=== PATIENT | female | born 1965 | race Caucasian/White ===

== ENCOUNTER 2020-11-02 13:36 | Outpatient (REF) | payer OTHER, SELFPAY ==
[2020-11-02 15:20] LABS: COVID-19 Test Negative (Negative)
== END 2020-11-02 13:37 | disposition home or self-care (01) ==
LOC: HO.EMPCOV 13:36
PROVIDERS: PCP Internal Medicine; Visit Provider Internal Medicine
DX: Z20.828 Contact with and (suspected) exposure to other viral communicable diseases (principal)
CPT/HCPCS: 87635; C9803

== ENCOUNTER 2020-11-25 15:54 | Outpatient (REF) | payer OTHER, SELFPAY ==
--- NOTE | 2020-11-25 16:01 | MM_ITS ---
EXAMINATION: MM SCREENING DIGITAL BREAST TOMOSYNTHESIS, BILATERAL CLINICAL INFORMATION: Screening. Asymptomatic. Family history breast cancer mother, age 80, aunts, cousin. The lifetime risk of breast cancer based on the Tyrer-Cuzick Model is 10%. COMPARISON: Mammography: 08/14/2019, 08/10/2018, 08/08/2017; ultrasound right breast 08/19/2019 TECHNIQUE: Digital breast tomosynthesis is performed in both the craniocaudal and mediolateral oblique views along with computer-aided detection (CAD). Synthesized 2D images are generated from the tomosynthesis. Additional left MLO view is provided. FINDINGS: The breasts are almost entirely fatty (ACR BI-RADS breast composition Category a). There are no significant masses, abnormal calcifications, or other abnormalities. Tiny cyst anterior lower inner right breast is stable. MM/MM tomosynthesis screening BI IMPRESSION: No mammographic evidence of malignancy. ASSESSMENT: BI-RADS 2: Benign RECOMMENDATION: Routine annual mammography screening. This patient's information was entered into a reminder system with a target due date for their next mammogram.
== END 2020-11-25 15:55 | disposition home or self-care (01) ==
LOC: HO.MAMMO 15:54
PROVIDERS: PCP Internal Medicine; Visit Provider Physician Assistant
DX: Z12.31 Encounter for screening mammogram for malignant neoplasm of breast (principal)
CPT/HCPCS: 77063; 77067

== ENCOUNTER 2021-06-15 11:14 | Outpatient (REF) | payer OTHER, SELFPAY ==
--- NOTE | ~2021-06-15 | US_ITS ---
EXAMINATION: US VENOUS ULTRASOUND WITH DOPPLER LOWER EXTREMITY, LEFT CLINICAL INFORMATION: M79.605 - Pain in left leg COMPARISON: None TECHNIQUE: Ultrasound of the deep veins is performed from the hip to the calf with compression sonography and color and pulse Doppler assessment. Spectral analysis with color-flow imaging is performed. FINDINGS: There is normal venous compression and respiratory variation and augmented flow. The visualized common femoral vein, superficial femoral vein, profunda femoral vein, popliteal vein, and the trifurcation region shows no evidence of deep venous thrombosis. The peroneal veins are difficult to visualize. There is no significant popliteal fossa cyst. US/US venous duplex LE IMPRESSION: 1. No DVT demonstrated in the left lower extremity. 2. If the patient's symptoms persist, followup ultrasound in 5 days 7 days might be of value to exclude proximal propagation from a non-visualized calf vein.
== END 2021-06-15 11:15 | disposition home or self-care (01) ==
LOC: HO.US 11:14
PROVIDERS: PCP Internal Medicine; Visit Provider Internal Medicine
DX: M79.605 Pain in left leg (principal)
CPT/HCPCS: 93971

== ENCOUNTER 2021-09-30 08:26 | Outpatient (REF) | payer OTHER, SELFPAY ==
[2021-09-30 09:39] LABS: Alanine Aminotransferase 19 U/L (0-31); Albumin Level 4.2 g/dL (3.5-5.0); Alkaline Phosphatase 76 U/L (39-117); Anion Gap 13 (12-20); Aspartate Amino Transferase 16 U/L (5-31); Bilirubin Total 0.5 mg/dL (0.0-1.0); Blood Urea Nitrogen 16 mg/dL (9-16); Calcium 9.4 mg/dL (8.4-10.2); Carbon Dioxide 26 mmol/L (22-29); Chloride 104 mmol/L (96-108); Cholesterol 195 mg/dL; Estimated Glomerular Filt Rate > 60; Glucose Fasting 108 mg/dL (60-99); HDL Cholesterol 46 mg/dL; LDL Cholesterol Calculated 133 mg/dl; Potassium 4.3 mmol/L (3.3-5.1); Sodium 139 mmol/L (135-145); Total Protein 6.8 g/dL (6.5-8.0); Triglycerides 83 mg/dL
== END 2021-09-30 08:27 | disposition home or self-care (01) ==
LOC: HO.LAB 08:26
PROVIDERS: PCP Internal Medicine; Visit Provider Internal Medicine
DX: E78.5 Hyperlipidemia, unspecified (principal)
CPT/HCPCS: 36415; 80053; 80061

== ENCOUNTER 2021-12-29 12:48 | Outpatient (REF) | payer OTHER, SELFPAY ==
--- NOTE | ~2021-12-29 | MM_ITS ---
EXAMINATION: BONE DENSITOMETRY CLINICAL INDICATION: Other specified disorders of bone density and structure. COMPARISON: Previous BD dated 08/16/2019 and baseline BD dated 08/18/2008, left hip; 02/23/2004, spine. TECHNIQUE: Using a [employer]oBox DXA System (software version: 13.1) manufactured by [employer], dual-energy x-ray absorptiometry was performed of the lumbar spine and left hip. The images are of good technical quality. Summary results are attached. FINDINGS: AP SPINE L1-L4: Current: BMD 1.026 g/cm2, Z-score -0.7, T-score -1.3, osteopenia, 7.7% increase from previous, 9.7% decrease from baseline (<5% change is not significant). Prior: BMD 0.953 g/cm2. Baseline: BMD 1.136 g/cm2. LEFT FEMUR, NECK: Current: BMD 0.743 g/cm2, Z-score -1.3, T-score -2.1, osteopenia. Prior: BMD 0.720 g/cm2. Baseline: BMD 0.812 g/cm2. LEFT FEMUR, TOTAL: Current: BMD 0.829 g/cm2, Z-score -1.0, T-score -1.4, osteopenia, 8.2% increase from previous, 1.0% decrease from baseline (<5% change is not significant). Prior: BMD 0.766 g/cm2. Baseline: BMD 0.837 g/cm2. IDENTIFIED RISK FACTORS: Early menopause, secondary osteoporosis, anticonvulsants, hysterectomy, bilateral oophorectomy. HISTORY OF FRACTURE: None listed. MEDICATIONS: Calcium supplements or multivitamin, vitamin D. MM/XR DEXA axial skeleton IMPRESSION: 1. DIAGNOSIS: Osteopenia based on the lowest T-score value of -2.1 in the femoral neck applying World Health Organization criteria. 2. 10-YEAR FRACTURE RISK PREDICTION, FRAX: Major osteoporotic fracture (clinical spine, forearm, hip or shoulder) 9.0%. Hip fracture 1.2%. 3. Treatment Recommendations: NOF guidelines recommend consideration for treatment in postmenopausal women and men age 50 and older presenting with the following: -A hip or vertebral (clinical or morphometric) fracture. -T-score less than or equal to -2.5 at the femoral neck or spine after appropriate evaluation to exclude secondary causes. -Low bone mass at the hip or spine and a 10-year fracture probability by FRAX of greater than or equal to 3% for hip fracture or greater than or equal to 20% for major osteoporotic fracture based on the [place] adapted WHO algorithm. 4. Other Recommendations: All treatment decisions require clinical judgment and consideration of individual patient factors, including patient preferences, comorbidities, previous drug use, risk factors not captured in the FRAX model (e.g. frailty, falls, vitamin D deficiency, increased bone turnover, interval significant decline in bone density) and possible under or overestimation of fracture risk by FRAX. Additional medical evaluation for secondary cause of low bone mineral density may be appropriate. FUTURE SCAN RECOMMENDATION: People with diagnosed cases of osteoporosis or at high risk for fracture should have regular bone mineral density tests. For patients eligible for Medicare, routine testing is allowed once every 2 years. The testing frequency can be increased to one year for patients who have rapidly progressing disease, those who are receiving or discontinuing medical therapy to restore bone mass, or have additional risk factors.
--- NOTE | ~2021-12-29 | MM_ITS ---
EXAMINATION: MM SCREENING DIGITAL BREAST TOMOSYNTHESIS, BILATERAL CLINICAL INFORMATION: Screening. Asymptomatic. The lifetime risk of breast cancer based on the Tyrer-Cuzick Model is 9%. COMPARISON: Mammography: 11/25/2020, 08/14/2019, 08/10/2018; targeted right breast ultrasound 08/19/2019. TECHNIQUE: Digital breast tomosynthesis is performed in both the craniocaudal and mediolateral oblique views along with computer-aided detection (CAD). Synthesized 2D images are generated from the tomosynthesis. FINDINGS: The breasts are almost entirely fatty (ACR BI-RADS breast composition Category a). There are no significant masses, abnormal calcifications, or other abnormalities. No developing density. Tiny cyst anterior lower right breast and low axillary tail node is stable. Skin contours are smooth. MM/MM tomosynthesis screening BI IMPRESSION: No mammographic evidence of malignancy. ASSESSMENT: BI-RADS 2: Benign RECOMMENDATION: Routine annual mammography screening. This patient's information was entered into a reminder system with a target due date for their next mammogram.
== END 2021-12-29 12:49 | disposition home or self-care (01) ==
LOC: HO.MAMMO 12:48
PROVIDERS: PCP Internal Medicine; Visit Provider Internal Medicine
DX: Z12.31 Encounter for screening mammogram for malignant neoplasm of breast (principal); Z13.820 Encounter for screening for osteoporosis; M85.80 Other specified disorders of bone density and structure, unspecified site; Z78.0 Asymptomatic menopausal state; Z79.899 Other long term (current) drug therapy
CPT/HCPCS: 77063; 77067; 77080

== ENCOUNTER 2022-08-16 07:55 | Outpatient (REF) | payer OTHER, SELFPAY ==
--- NOTE | ~2022-08-16 | US_ITS ---
EXAMINATION: US VENOUS ULTRASOUND WITH DOPPLER LOWER EXTREMITY, RIGHT CLINICAL INFORMATION: Right leg pain. COMPARISON: None TECHNIQUE: Ultrasound of the deep veins is performed from the hip to the calf with compression sonography and color and pulse Doppler assessment. Spectral analysis with color-flow imaging is performed. FINDINGS: There is normal venous compression and respiratory variation and augmented flow. The visualized common femoral vein, superficial femoral vein, profunda femoral vein, popliteal vein, and the trifurcation region shows no evidence of deep venous thrombosis. No right popliteal cyst. The subcutaneous soft tissues are unremarkable. If the patient's symptoms persist, followup ultrasound in 5 days 7 days might be of value to exclude proximal propagation from a non-visualized calf vein. US/US venous duplex LE RT IMPRESSION: No evidence for deep venous thrombosis in the visualized veins of the right lower extremity.
== END 2022-08-16 07:56 | disposition home or self-care (01) ==
LOC: HO.US 07:55
PROVIDERS: Visit Provider Internal Medicine
DX: M79.604 Pain in right leg (principal)
CPT/HCPCS: 93971

== ENCOUNTER 2022-08-29 07:20 | Outpatient (REF) | payer OTHER, SELFPAY ==
--- NOTE | ~2022-08-29 | MR_ITS ---
EXAMINATION: MR LUMBAR SPINE WITHOUT CONTRAST CLINICAL INFORMATION: Right-sided sciatica. COMPARISON: Lumbar spine MRI 06/21/2018. TECHNIQUE: MRI of the lumbar spine was obtained using routine sequences without contrast. FINDINGS: Alignment is normal. Vertebral body heights are preserved. No acute bone marrow signal changes. There is disc desiccation at multiple levels without substantial loss of intervertebral disc height. The tip of the conus medullaris is located at L1-L2. No mass effect on the conus. Visualized distal cord signal intensity is normal. At L1-L2 there is a shallow central protrusion. Mild canal stenosis. No mass effect on the traversing or foraminal nerve roots. At L2-L3 there is a right central protrusion. Mild canal stenosis. No mass effect on the traversing or foraminal nerve roots. At L3-L4 there is a left foraminal to far lateral annular fissure associated with a bulging disc. Bilateral facet degenerative change. No canal stenosis. No mass effect on the traversing or foraminal nerve roots. At L4-L5 the annular contour is normal. Bilateral facet degenerative change. No canal stenosis. No mass effect on the traversing or foraminal nerve roots. At L5-S1 there are chronic changes of a right hemilaminectomy. There is a slightly bulging disc. No canal stenosis. The epidural space along the right lateral aspect of the canal at this level is suboptimally assessed due to the absence of intravenous contrast. No foraminal nerve root compression. Limited visualization of the retroperitoneal anatomy reveals no abnormal finding. Psoas and paraspinal muscle groups are symmetric. MR/MR lumbar spine wo con IMPRESSION: There is disc degeneration at multiple levels within the lumbar spine. Mild canal stenosis at L1-L2 and L2-L3. Otherwise no canal compromise. No mass effect on the traversing or foraminal nerve roots. There are chronic postlaminectomy changes at L5-S1. The epidural space along the right lateral aspect of the canal the level of L5-S1 is suboptimally assessed on this examination due to the absence of intravenous contrast.
== END 2022-08-29 07:21 | disposition home or self-care (01) ==
LOC: HO.MRI 07:20
PROVIDERS: Visit Provider Internal Medicine
DX: M54.31 Sciatica, right side (principal); M79.604 Pain in right leg
CPT/HCPCS: 72148

== ENCOUNTER 2022-10-22 09:22 | Outpatient (REF) | payer OTHER, SELFPAY ==
[2022-10-22 11:07] LABS: Alanine Aminotransferase 24 U/L (0-31); Albumin Level 4.3 g/dL (3.5-5.0); Alkaline Phosphatase 76 U/L (39-117); Anion Gap 11 (12-20); Aspartate Amino Transferase 18 U/L (5-31); Bilirubin Total 0.6 mg/dL (0.0-1.0); Blood Urea Nitrogen 16 mg/dL (9-16); Calcium 9.5 mg/dL (8.4-10.2); Carbon Dioxide 26 mmol/L (22-29); Chloride 107 mmol/L (96-108); Cholesterol 160 mg/dL; Estimated Glomerular Filt Rate > 60; Glucose Fasting 106 mg/dL (60-99); HDL Cholesterol 41 mg/dL; LDL Cholesterol Calculated 103 mg/dl; Potassium 4.1 mmol/L (3.3-5.1); Sodium 140 mmol/L (135-145); Total Protein 6.4 g/dL (6.5-8.0); Triglycerides 82 mg/dL; Vitamin D 25-OH Total 40.4 ng/mL (>30)
== END 2022-10-22 09:23 | disposition home or self-care (01) ==
LOC: HO.LAB 09:22
PROVIDERS: PCP Internal Medicine; Visit Provider Internal Medicine
DX: Z00.00 Encounter for general adult medical examination without abnormal findings (principal); E78.5 Hyperlipidemia, unspecified; E55.9 Vitamin D deficiency, unspecified
CPT/HCPCS: 36415; 80053; 80061; 82306

== ENCOUNTER → 2022-11-25 08:11 | Outpatient (BNVA) | payer OTHER, SELFPAY | PROVIDERS: PCP Internal Medicine; Visit Provider Internal Medicine | DX: Z13.89 Encounter for screening for other disorder (principal) ==

== ENCOUNTER 2023-01-19 14:44 | Outpatient (REF) | payer OTHER, SELFPAY ==
--- NOTE | ~2023-01-19 | MM_ITS ---
EXAMINATION: MM SCREENING DIGITAL BREAST TOMOSYNTHESIS, BILATERAL CLINICAL INFORMATION: Screening. Asymptomatic. The lifetime risk of breast cancer based on the Tyrer-Cuzick Model is 9%. COMPARISON: Mammography: 12/29/2021, 11/25/2019 12/02/2018 TECHNIQUE: Digital breast tomosynthesis is performed in both the craniocaudal and mediolateral oblique views along with computer-aided detection (CAD). Synthesized 2D images are generated from the tomosynthesis. FINDINGS: The breasts are almost entirely fatty (ACR BI-RADS breast composition Category a). There are no significant masses, abnormal calcifications, or other abnormalities. Background stromal markings are similar to prior studies and there is no developing density or interval architectural abnormality. Incidental intramammary node again present posterior 9:00 right breast. The axilla and skin contours are unremarkable. No significant changes. MM/MM tomosynthesis screening BI IMPRESSION: No mammographic evidence of malignancy. ASSESSMENT: BI-RADS 2: Benign RECOMMENDATION: Routine annual mammography screening. This patient's information was entered into a reminder system with a target due date for their next mammogram.
== END 2023-01-19 14:45 | disposition home or self-care (01) ==
LOC: HO.MAMMO 14:44
PROVIDERS: PCP Internal Medicine; Visit Provider Internal Medicine
DX: Z12.31 Encounter for screening mammogram for malignant neoplasm of breast (principal)
CPT/HCPCS: 77063; 77067

== ENCOUNTER 2023-04-21 07:36 | Day surgery (SDC) | payer OTHER, SELFPAY ==
--- NOTE | 2023-04-20 10:42 | HO.ANESPROP2 ---
Documented by User: Carly Crews NP 04/20/23 10:44 HPI - Anesthesia Eval Consult details Narrative: 58yo F for Colonoscopy PMFSH Active Problems Active Problems: All Active Problems (Updated 04/20/23 @ 09:53 by Unique Aden, RN) Right leg pain (Acute) Right sided sciatica (Acute) Post laminectomy syndrome (Acute) Physical exam (Acute) Osteopenia (Acute) Obesity (BMI 30.0-34.9) (Acute) Impaired glucose tolerance (Acute) Cold sore (Acute) Left leg pain (Acute) Blood pressure elevated without history of HTN (Acute) Dyslipidemia (Acute) Past Medical History Medical History (Updated 04/20/23 @ 09:53 by Unique Aden, RN) Blood pressure elevated without history of HTN Cold sore Dyslipidemia GERD (gastroesophageal reflux disease) Hiatal hernia IBS (irritable bowel syndrome) Impaired glucose tolerance Left leg pain Mitral valve prolapse Obesity (BMI 30.0-34.9) Osteopenia Otitis media Family History Family History Mother Essential hypertension Dyslipidemia Diabetes mellitus Father Parkinsons disease Surgical History Surgical History (Updated 04/20/23 @ 09:51 by Unique Aden RN) H/O colonoscopy History of back surgery History of hysterectomy Hx of esophagogastroduodenoscopy Social History Social History Housing: House Alcohol intake: current Alcohol intake frequency: does not drink Alcohol type: hard liquor Patient Tobacco Use Status: Former Tobacco user Tobacco use type: Cigarette e-Cigarette/Vaping Use: Never Used Second Hand Smoke Exposure: No Are you DNR?: No Advance Directives: No Advance Directives Information Provided: Yes Nutrition Risks: No Nutritional Risk service: No Current occupational status: employed Cognitive needs: No Hearing needs: No Vision needs: No Meds Allergies Allergy/AdvReac Type Severity Reaction Status Date / Time moxifloxacin [Avelox] Allergy Severe hives/rash Verified 11/25/22 08:28 penicillin V Allergy Intermediate hives Verified 11/25/22 08:28 prednisone Allergy Mild rash Verified 11/25/22 08:28 atorvastatin [Lipitor] AdvReac Intermediate muscle Verified 11/25/22 08:28 aches Dairy- lactose intolerant Allergy Intermediate gi side Uncoded 11/25/22 08:28 effects Augmentin Allergy Mild GI side Uncoded 11/25/22 08:28 effects. Seasonal allergies Allergy Mild Sneezing Uncoded 11/25/22 08:28 Home Medications Medication Instructions Recorded Confirmed Last Taken Type aspirin 81 mg tablet,delayed 81 mg PO DAILY 02/16/21 11/25/22 04/11/23 History release (Adult Low Dose Aspirin) cholecalciferol (vitamin D3) 25 25 mcg PO DAILY 06/15/21 11/25/22 Unknown History mcg (1,000 unit) capsule biotin 04/20/23 04/20/23 Unknown History Exam Exam Date and Time: April 20, 2023 104 Assessment and Plan Assessment Anesthesia Assessment: Chart Reviewed Documented by User: Kacie Quinonez MD 04/21/23 09:11 COUNTS INCLUDE 234 BEDS AT THE [facility] Past Medical History Medical History (Updated 04/20/23 @ 09:53 by Unique Aden, RN) Blood pressure elevated without history of HTN Cold sore Dyslipidemia GERD (gastroesophageal reflux disease) Hiatal hernia IBS (irritable bowel syndrome) Impaired glucose tolerance Left leg pain Mitral valve prolapse Obesity (BMI 30.0-34.9) Osteopenia Otitis media Family History Family History Mother Essential hypertension Dyslipidemia Diabetes mellitus Father Parkinsons disease Family history of problems with anesthesia: No Surgical History Surgical History (Updated 04/20/23 @ 09:51 by Unique Aden, RN) H/O colonoscopy History of back surgery History of hysterectomy Hx of esophagogastroduodenoscopy History of Problems with Anesthesia: No Social History Social History Housing: House Alcohol intake: current Alcohol intake frequency: does not drink Alcohol type: hard liquor Patient Tobacco Use Status: Former Tobacco user Tobacco use type: Cigarette e-Cigarette/Vaping Use: Never Used Second Hand Smoke Exposure: No Are you DNR?: No Advance Directives: No Advance Directives Information Provided: Yes Nutrition Risks: No Nutritional Risk service: No Current occupational status: employed Cognitive needs: No Hearing needs: No Vision needs: No Meds Allergies Allergy/AdvReac Type Severity Reaction Status Date / Time moxifloxacin [Avelox] Allergy Severe hives/rash Verified 11/25/22 08:28 penicillin V Allergy Intermediate hives Verified 11/25/22 08:28 prednisone Allergy Mild rash Verified 11/25/22 08:28 atorvastatin [Lipitor] AdvReac Intermediate muscle Verified 11/25/22 08:28 aches Dairy- lactose intolerant Allergy Intermediate gi side Uncoded 11/25/22 08:28 effects Augmentin Allergy Mild GI side Uncoded 11/25/22 08:28 effects. Seasonal allergies Allergy Mild Sneezing Uncoded 11/25/22 08:28 Home Medications Medication Instructions Recorded Confirmed Last Taken Type aspirin 81 mg tablet,delayed 81 mg PO DAILY 02/16/21 11/25/22 04/11/23 History release (Adult Low Dose Aspirin) cholecalciferol (vitamin D3) 25 25 mcg PO DAILY 06/15/21 11/25/22 Unknown History mcg (1,000 unit) capsule biotin 04/20/23 04/20/23 Unknown History Exam Airway Mallampati Class: I TM Dist: >3cm Neck ROM: Full Loose/Missing/Broken Teeth: No Heart: rr Lungs: cta Assessment and Plan Assessment Anesthesia Assessment: Anesthesia Plan Discussed Final Anesthetic Review Family History of Problems with Anesthesia: No History of Problems with Anesthesia: No NPO: Yes ASA Class: II Final Preanesthetic Review: No Changes in Pt Med Stat, Meds/Allgs Chart Reviewed, Consent Obtained/Reviewed and Anes Risks/Benef Reviewed Patient Risk: Low Procedure Risk: Low Anesthetic Plan Anesthetic Plan: MAC: Disposition: Standard PACU
[2023-04-21 05:57] VITALS: BMI 35.1
[2023-04-21 07:39] VITALS: BP 143/89; PULSE 99; RESP 20; TEMP 36.1; O2SAT 99
[2023-04-21] MEDS: Lactated Ringers 1,000 ML 100 ML IVCONT (08:04)
--- NOTE | 2023-04-21 09:37 | P.BOP_ITS ---
Brief Operative Note Date of Service: 04/21/23 Pre-op diagnosis: Screening Post-op diagnosis: other (Diverticulosis) Procedure: Colonoscopy to the cecum Surgeon: Julio C Giraldo Anesthesia: MAC Was an Art Education Professor used for this Procedure?: No Estimated blood loss (mL): 0 Pathology: none sent Condition: stable Disposition: PACU
[2023-04-21 09:39] VITALS: BP 107/66; PULSE 85; RESP 16; TEMP 36.5; O2SAT 97
[2023-04-21 09:54] VITALS: BP 115/69; PULSE 83; RESP 16; O2SAT 98
--- NOTE | 2023-04-21 10:01 | OP_ITS ---
DATE OF SERVICE: 04/21/2023 SURGEON: Julio C Giraldo MD INDICATIONS: The patient presents for evaluation of colorectal cancer screening. Full consent has been obtained from her for this, including risks of bleeding and perforation. PREOPERATIVE DIAGNOSIS: Colorectal cancer screening. POSTOPERATIVE DIAGNOSIS: PROCEDURE PERFORMED: Colonoscopy to the cecum. ESTIMATED BLOOD LOSS: COMPLICATIONS: ANESTHESIA: Monitored anesthesia care. ASSISTANTS: SPECIMENS: POSTOPERATIVE DIAGNOSES: Colorectal cancer screening, sigmoid diverticulosis, and internal hemorrhoids. DESCRIPTION OF PROCEDURE: The patient was placed in the left lateral decubitus position. The digital rectal exam revealed no abnormalities. The Olympus video pediatric colonoscope was entered into the rectum and advanced easily to the cecum. Once in the cecum, I did identify normal-appearing cecal pouch with appendiceal orifice and a normal-appearing ileocecal valve. The entire cecum and ileocecal valve appeared normal. There was transillumination of light deep in the right lower quadrant. The scope was slowly withdrawn assessing all mucosal surfaces carefully. Preparation was excellent. I did not visualize any sign of polyps, colitis, nor angiodysplasia. There was a mild amount of sigmoid diverticulosis. In the rectum, scope was retroflexed visualizing internal hemorrhoids but no other pathology. The rectal mucosa appeared normal. The scope was straightened and withdrawn from the patient. She tolerated the procedure well and was returned to the recovery area in stable condition. IMPRESSION: 1. Diverticulosis. 2. Internal hemorrhoids. PLAN: Given today's negative exam, I would recommend a followup coloscopy in 10 years for further screening. She will otherwise see me on a p.r.n. basis. This has been discussed with her . She was advised that she could resume her aspirin and fish oil today as well. MD AISSATOU Molina/JOSE L / [id number] MTDD
== END 2023-04-21 10:20 | disposition home or self-care (01) ==
PROVIDERS: PCP Internal Medicine; Visit Provider Internal Medicine
PROC: 0DJD8ZZ Inspection of Lower Intestinal Tract, Via Natural or Artificial Opening Endoscopic (ICD-10-PCS; CPT 45378; principal; 2023-04-21 08:30)
DX: Z12.11 Encounter for screening for malignant neoplasm of colon (principal); K57.30 Diverticulosis of large intestine without perforation or abscess without bleeding; K64.8 Other hemorrhoids; K58.8 Other irritable bowel syndrome; E73.9 Lactose intolerance, unspecified; K21.9 Gastro-esophageal reflux disease without esophagitis; E78.5 Hyperlipidemia, unspecified; Z79.82 Long term (current) use of aspirin; Z79.899 Other long term (current) drug therapy; Z88.1 Allergy status to other antibiotic agents
CPT/HCPCS: 45378; 91035

== ENCOUNTER 2023-11-08 16:06 | Outpatient (AMB) | payer OTHER, SELFPAY ==
--- NOTE | 2023-11-08 16:10 | A.OFFPC_ITS ---
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 Seasonal allergies Allergy (Mild, Uncoded 11/08/23 16:21) Sneezing Medication List - Last Reconciled 11/08/23 by Yocasta Hernandez MD aspirin (Adult Low Dose Aspirin) 81 mg PO DAILY [biotin ] cholecalciferol (vitamin D3) 25 mcg PO DAILY simvastatin 20 mg PO BEDTIME Tobacco use date assessed: 11/08/23 Dental Screening Dental Screen Date: 11/08/23 Did you have a dental visit in the last 12 months?: Yes Did you have a dental problem in the last 6 months where you did not have access to dental care?: No Was dental information given to patient?: Patient has dentist HPI HPI Comments History of Present Illness Details This is a 58-year-old female that comes for her physical exam. Last mammogram was 2022 and was normal. Colonoscopy done April 2023 was normal. No chest pain or shortness of breath. [facility] Medical History (Updated 11/08/23 @ 16:36 by Yocasta Hernandez MD) IBS (irritable bowel syndrome) Mitral valve prolapse Hiatal hernia GERD (gastroesophageal reflux disease) Osteopenia Obesity (BMI 30.0-34.9) Impaired glucose tolerance Cold sore Left leg pain Blood pressure elevated without history of HTN Otitis media Dyslipidemia Surgical History Hx of esophagogastroduodenoscopy H/O colonoscopy History of back surgery History of hysterectomy Family History Mother Essential hypertension Dyslipidemia Diabetes mellitus Father Parkinsons disease Social History (Updated 11/08/23 @ 16:28 by Yocasta Hernandez MD) Housing: House Alcohol intake: current Alcohol intake frequency: does not drink Alcohol type: hard liquor Patient Tobacco Use Status: Former Tobacco user Tobacco use type: Cigarette e-Cigarette/Vaping Use: Never Used Second Hand Smoke Exposure: No service: No Current occupational status: employed Cognitive needs: No Hearing needs: No Vision needs: No Questionnaire PHQ-9 Over the last 2 weeks, how often have you been bothered by any of the following problems? 1. Little interest or pleasure in doing things: not at all 2. Feeling down, depressed, or hopeless: not at all 3. Trouble falling or staying asleep, or sleeping too much: not at all 4. Feeling tired or having little energy: not at all 5. Poor appetite or overeating: not at all 6. Feeling bad about yourself - or that you are a failure or have let yourself or your family down: not at all 7. Trouble concentrating on things, such as reading the newspaper or watching television: not at all 8. Moving or speaking so slowly that other people could have noticed. Or the opposite - being so fidgety or restless that you have been moving around a lot more than usual: not at all 9. Thoughts that you would be better off or of hurting yourself in some way: not at all Total score: 0 Depression Screening Interpretation: Negative Depression Screening Done: Yes 14045 - PHQ-9 Billing: Yes Source: Developed by Drs. Julio C Quijano, Mehnaz Alejo, Leonid Matos and colleagues, with an educational nithya from [employer]. Thrive Questionnaire Date Thrive assessed: 11/08/23 I am a: Patient What is your living situation today?: I have a steady place to live Within the past 12 months, did the food you bought not last and you didn't have the money to get more?: Never true Within the past 12 months, did you worry whether your food would run out before you got money to buy more?: Never true Do you have trouble paying for medicines?: No Do you have trouble getting transportation to medical appointments?: No Do you have trouble paying your heating and electricity bill?: No Do you have trouble taking care of your child, family member or friend?: No Do you have trouble with day-to-day activities such as bathing, preparing meals, shopping, managing finances, etc.?: No Are you currently unemployed and looking for a job?: No Are you interested in more education?: No Please select the resources that you would like help with: None Currently or been in a relationship where the following occur: no concerns reported CLARISSE-7 AMB Questionnaire CLARISSE-7 Date CLARISSE - 7 assessed: 11/08/23 Feeling nervous, anxious, or on edge: 0 = Not at all Not being able to stop or control worryin = Not at all Worrying too much about different things: 0 = Not at all Trouble relaxin = Not at all Being so restless that it is hard to sit still: 0 = Not at all Becoming easily annoyed or irritable: 0 = Not at all Feeling afraid as if something awful might happen: 0 = Not at all Total CLARISSE-7 score (0-4 normal; 5-9 mild; 10-14 moderate; 15-21 severe): 0 Source: Developed by Drs. Julio C Quijano, Mehnaz Alejo, Leonid Matos and colleagues, with an educational nithya from [employer]. CLARISSE-7 Assessment Billing CLARISSE-7 Assessment Tool: CLARISSE-7 Assessment 78604 Review of Systems Const All systems reviewed & are unremarkable except as noted in HPI and below Eyes Reports no additional complaints, Denies change in vision and Denies other visual disturbances Card Denies chest pain at rest, Denies chest pain with activity, Denies edema, Denies irregular heart rhythm, Denies claudication, Denies dyspnea, Denies dyspnea on exertion, Denies orthopnea, Denies paroxysmal nocturnal dyspnea and Denies slow heart rate Resp Denies cough, Denies dyspnea and Denies dyspnea on exertion GI Denies abdominal pain, Denies change in bowel habits, Denies excessive flatus, Denies nausea and Denies vomiting Denies urinary incontinence, Denies urinary hesitancy and Denies urinary urgency Musc Denies abnormal gait, Denies atrophy, Denies deformity and Denies limited range of motion Skin/Breast Denies bleeding lesions, Denies changing lesions and Denies rash Neuro Denies abnormal gait, Denies behavioral changes, Denies confusion and Denies lack of coordination Psych Denies behavioral changes and Denies confusion Physical exam (Primary Care) Vital Signs: Last Vital Signs BP 130/82 11/08/23 16:11 BMI result Body Mass Index 33.8 Tobacco/Smoking Status: Tobacco use Status Tobacco use date assessed 11/08/23 11/08/23 16:17 Patient Tobacco Use Status Former Tobacco user 11/08/23 16:13 Tobacco use type Cigarette 11/08/23 16:13 e-Cigarette/Vaping Use Never Used 11/08/23 16:13 PHQ-9: PHQ-9 Score PHQ-9: Total score 0 11/08/23 16:13 Depression Screening Interpretation: Negative Thrive Assessment: Date of Thrive Assessment Date Thrive assessed 11/08/23 11/08/23 16:13 Currently or been in a relationship where the following occur: no concerns reported Const General: No confusion Orientation/consciousness: patient oriented x3 and No confusion HENMT Head: Yes normal to inspection, Yes normocephalic and Yes atraumatic Ears: external ears normal Eyes General: appearance normal, both eyes and all related structures Eyelids: Yes eyelids normal Conjunctivae: conjunctivae normal Neck Neck: Yes normal visual inspection and Yes supple Resp Effort & Inspection: normal respiratory effort Auscultation: clear to auscultation bilaterally Cardio Jugular venous distension: no JVD Rate: regular rate Rhythm: regular rhythm Heart sounds: S1 normal heart sound present and S2 normal heart sound present GI Inspection: Yes normal to inspection Palpation (GI): Soft to palpation and nontender Auscultation: normal bowel sounds Skin General skin exam: no rashes or lesions noted Neuro General: patient oriented x3, no focal motor deficits and No confusion Extrem General: Yes full ROM Psych Appearance: grossly normal Assessment and Plan Assessment & Plan (1) Physical exam: Code(s): Z00.00 - Encounter for general adult medical examination without abnormal findings Plan: Repeat in a year. Orders: Orders Lipid Panel Today E78.5 - Hyperlipidemia, unspecified, Z00.00 - Encounter for general adult medical examination without abnormal findings Vitamin D 25-OH Total Today E55.9 - Vitamin D deficiency, unspecified Comprehensive [place]. Panel Fast Today Z00.00 - Encounter for general adult medical examination without abnormal findings Medications: New selenium sulfide 2.25% lather into wet hair; leave in place for approximately 3 mins ; rinse 5 mL t opical 2XW 180 mL 1RF 30 days L21.9 - Seborrheic dermatitis, unspecified Coding Level of Care Code Est Pt Prev Care 40-64y(84993) Diagnoses Physical exam Z00.00 Additional Codes CLARISSE-7 Assessment Billing - CLARISSE-7 Assessment Tool: CLARISSE-7 Assessment 88275 ([id number]) Time Spent (min) 30
[2023-11-08 16:11] VITALS: BP 130/82; BMI 33.8
== END 2023-11-08 16:35 | disposition home or self-care (01) ==
PROVIDERS: Visit Provider Internal Medicine
DX: Z00.00 Encounter for general adult medical examination without abnormal findings (principal)
CPT/HCPCS: 99396

== ENCOUNTER 2023-11-09 09:57 | Outpatient (REF) | payer OTHER, SELFPAY ==
[2023-11-09 12:35] LABS: Alanine Aminotransferase 20 U/L (0-31); Albumin Level 4.3 g/dL (3.5-5.0); Alkaline Phosphatase 71 U/L (39-117); Anion Gap 12 (12-20); Aspartate Amino Transferase 23 U/L (5-31); Bilirubin Total 0.5 mg/dL (0.0-1.0); Blood Urea Nitrogen 13 mg/dL (9-16); Calcium 9.6 mg/dL (8.4-10.2); Carbon Dioxide 26 mmol/L (22-29); Chloride 106 mmol/L (96-108); Cholesterol 189 mg/dL (<200); Estimated Glomerular Filt Rate > 60; Glucose Fasting 90 mg/dL (60-99); HDL Cholesterol 51 mg/dL (>40); LDL Cholesterol Calculated 120 mg/dL (<100); Potassium 3.7 mmol/L (3.3-5.1); Sodium 140 mmol/L (135-145); Total Protein 7.1 g/dL (6.5-8.0); Triglycerides 92 mg/dL (<150)
[2023-11-09 12:37] LABS: Vitamin D 25-OH Total 41.4 ng/mL (>30)
== END 2023-11-09 09:58 | disposition home or self-care (01) ==
LOC: HO.LAB 09:57
PROVIDERS: PCP Internal Medicine; Visit Provider Internal Medicine
DX: Z00.00 Encounter for general adult medical examination without abnormal findings (principal); E55.9 Vitamin D deficiency, unspecified; E78.5 Hyperlipidemia, unspecified
CPT/HCPCS: 36415; 80053; 80061; 82306

== ENCOUNTER 2023-12-04 09:58 | Outpatient (REF) | payer OTHER, SELFPAY ==
--- NOTE | ~2023-12-04 | XR_ITS ---
EXAMINATION: XR FOOT, RIGHT CLINICAL INFORMATION: Foot pain COMPARISON: None available. TECHNIQUE: AP, lateral, and oblique views of the right foot. FINDINGS: Soft tissues mid distal plantar foot are diffusely prominent. No fracture or dislocation. Alignment and articulations maintained. XR/XR foot RT min 3V IMPRESSION: No acute bony pathology right foot.
== END 2023-12-04 09:59 | disposition home or self-care (01) ==
LOC: HO.HOSX 09:58
PROVIDERS: Visit Provider Physician Assistant
DX: S62.606A Fracture of unspecified phalanx of right little finger, initial encounter for closed fracture (principal)
CPT/HCPCS: 73630

== ENCOUNTER 2023-12-04 13:19 | Outpatient (AMB) | payer OTHER, SELFPAY ==
--- NOTE | 2023-12-04 13:21 | MHC.OFFVIS ---
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 Patient reports she was vacuuming and she was putting the vacuum away while her right foot hit a chair causing her a lot of pain . She states that when she is not having too much pain. Allergies moxifloxacin [Avelox] Allergy (Severe, Verified 12/04/23 13:42) hives/rash penicillin V Allergy (Intermediate, Verified 12/04/23 13:42) hives prednisone Allergy (Mild, Verified 12/04/23 13:42) rash atorvastatin [Lipitor] Adverse Reaction (Intermediate, Verified 12/04/23 13:42) muscle aches Dairy- lactose intolerant Allergy (Intermediate, Uncoded 11/08/23 16:21) gi side effects Augmentin Allergy (Mild, Uncoded 11/08/23 16:21) GI side effects. 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 The patient reports after she finished vacuuming she went to put the vacuum away and she hit her foot on a chair. She states this caused her a lot of pain. 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 [facility] Medical History IBS (irritable bowel syndrome) Mitral valve prolapse Hiatal hernia GERD (gastroesophageal reflux disease) Osteopenia Obesity (BMI 30.0-34.9) Impaired glucose tolerance Cold sore Left leg pain Blood pressure elevated without history of HTN Otitis media Dyslipidemia Surgical History Hx of esophagogastroduodenoscopy H/O colonoscopy History of back surgery History of hysterectomy Family History Mother Essential hypertension Dyslipidemia Diabetes mellitus Father Parkinsons disease Social History (Reviewed 12/04/23 @ 13:22 by Dinora Marcus Housing: House Alcohol intake: current Alcohol intake frequency: does not drink Alcohol type: hard liquor Patient Tobacco Use Status: Former Tobacco user Tobacco use type: Cigarette e-Cigarette/Vaping Use: Never Used Second Hand Smoke Exposure: No service: No Current occupational status: employed Cognitive needs: No Hearing needs: No Vision needs: No Review of Systems Const All systems reviewed & are unremarkable except as noted in HPI and below Physical Exam Const General: cooperative and no acute distress Orientation/consciousness: patient oriented x3 Resp Effort & Inspection: normal respiratory effort and able to speak in complete sentences Cardio Peripheral pulses: Peripheral pulses 2+ throughout Skin General skin exam: no rashes or lesions noted Neuro General: patient oriented x3 Extrem Other: Right little toe: Mild ecchymosis and edema. No erythema or open wounds. Tenderness to palpation over the proximal phalanx. Numbness at baseline. Capillary refill is brisk. Assessment & Plan Assessment & Plan (1) Fracture of phalanx of right little finger: Code(s): S62.606A - Fracture of unspecified phalanx of right little finger, initial encounter for closed fracture Plan Ms. Madrid is a 58-year-old female who presents in the office today, as a new patient, for an evaluation of right foot pain. The patient reports after she finished vacuuming she went to put the vacuum away and she hit her foot on a chair. She states this caused her a lot of pain. 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 The little and ring toe were zuleyma taped while in the office today. She was educated bone takes 6-8 weeks to heal. I recommend the use of a supportive sneaker. No other additional orthopedic intervention is needed at this time. Follow up will be PRN, or sooner if needed. X-rays of the right foot which were obtained while in the office today and were reviewed by me, Estella Clayton PA-C, revealed a proximal phalanx fracture of the little toe. Orders: Orders XR foot RT min 3V Today M79.673 - Pain in unspecified foot Patient Instructions: Scribed for Estella Clayton PA-C by Yaneli White biomedical engineering director, on 12/04/2023 at 1:21 pm, EST. Coding Level of Care Code Est Pt Level 3 (36473) Diagnoses Fracture of phalanx of right little finger S62.606A
== END 2023-12-04 13:42 | disposition home or self-care (01) ==
PROVIDERS: PCP Internal Medicine; Visit Provider Physician Assistant
DX: S90.121A Contusion of right lesser toe(s) without damage to nail, initial encounter (principal)
CPT/HCPCS: 99203

== ENCOUNTER 2024-01-25 14:44 | Outpatient (REF) | payer OTHER, SELFPAY ==
--- NOTE | ~2024-01-25 | MM_ITS ---
EXAMINATION: MM SCREENING DIGITAL BREAST TOMOSYNTHESIS, BILATERAL CLINICAL INFORMATION: Screening. Asymptomatic. COMPARISON: Mammography: 01/19/2023, 12/29/2021, 11/25/2019 12/02/2018 TECHNIQUE: Digital breast tomosynthesis is performed in both the craniocaudal and mediolateral oblique views along with computer-aided detection (CAD). Synthesized 2D images are generated from the tomosynthesis. FINDINGS: The breasts are almost entirely fatty (ACR BI-RADS breast composition Category a). There are no suspicious masses, suspicious grouped calcifications, or areas of architectural distortion in either breast. Unchanged incidental intramammary lymph node again noted posterior 9:00 right breast. The parenchymal pattern is stable from prior exams. No axillary or skin abnormalities. MM/MM tomosynthesis screening BI IMPRESSION: No mammographic evidence of malignancy. ASSESSMENT: BI-RADS BI-RADS 2 - Benign Findings RECOMMENDATION: Routine annual mammography screening. 1 year F/U This examination should not preclude the clinical evaluation of a suspicious palpable abnormality. This patient's information was entered into a reminder system with a target due date for their next mammogram.
== END 2024-01-25 14:45 | disposition home or self-care (01) ==
LOC: HO.MAMMO 14:44
PROVIDERS: PCP Internal Medicine; Visit Provider Internal Medicine
DX: Z12.31 Encounter for screening mammogram for malignant neoplasm of breast (principal)
CPT/HCPCS: 77063; 77067

== ENCOUNTER → 2024-01-25 15:00 | Outpatient (BNV) | payer OTHER, SELFPAY | PROVIDERS: PCP Internal Medicine; Visit Provider Radiology Diagnostic Radiology | DX: Z12.31 Encounter for screening mammogram for malignant neoplasm of breast (principal) | CPT/HCPCS: 77063; 77067 ==

== ENCOUNTER 2024-11-11 15:18 | Outpatient (AMB) | payer OTHER, SELFPAY ==
--- NOTE | 2024-11-11 15:21 | A.OFFPC_ITS ---
Vital Signs 11/11/24 15:28 Height 5 ft 2 in Weight 183 lb BMI 33.5 BP 116/86 Blood Pressure Location Rt brachial Position Sitting Pulse 90 Pulse Source Pulse Oximeter Pulse Oximetry (%) 98 Oxygen Delivery Method Room Air Intake Visit Reasons: CPE Intake Note: Physical. Sinus congestion, headache, mucous. Transitional Care Manager Required: No Allergies moxifloxacin [Avelox] Allergy (Severe, Verified 11/11/24 15:46) hives/rash penicillin V Allergy (Intermediate, Verified 11/11/24 15:46) hives prednisone Allergy (Mild, Verified 11/11/24 15:46) rash atorvastatin [Lipitor] Adverse Reaction (Intermediate, Verified 11/11/24 15:46) muscle aches Dairy- lactose intolerant Allergy (Intermediate, Uncoded 11/11/24 15:25) gi side effects Augmentin Allergy (Mild, Uncoded 11/11/24 15:25) GI side effects. Seasonal allergies Allergy (Mild, Uncoded 11/11/24 15:25) Sneezing Medication List - Last Reconciled 11/11/24 by SHARI Ortiz- aspirin (Adult Low Dose Aspirin) 81 mg PO DAILY [biotin ] cholecalciferol (vitamin D3) 25 mcg PO DAILY multivitamin 1 tab PO DAILY selenium sulfide 2.25% 5 mL topical 2XW 30 days simvastatin 20 mg PO BEDTIME valacyclovir 1,000 mg PO BID 7 days Tobacco use date assessed: 11/11/24 Dental Screening Dental Screen Date: 11/11/24 Did you have a dental visit in the last 12 months?: Yes Did you have a dental problem in the last 6 months where you did not have access to dental care?: No Was dental information given to patient?: Patient has dentist HPI HPI Comments History of Present Illness Details 59 y/o F with osteopenia, IFG, HLD, IBS, MV prolapse, hiatal hernia, post laminectomy syndrome, seborrheic dermatitis, family hx of breast ca, Mom with negative BRCA testing, divertoculosis s/p back surgery, hysterectomy Family hx Mom breast ca age 80, maternal cousin breast ca 40, maternal aunt breast ca 70, maternal aunt breast ca 30's Health Maintenance Tdap 2016 Flu 2023 at work Mammo 01/2024 Colon April 2023 WNL repeat [address] Kristal BATES 2021 osteopenia Pap Shingles vaccine UTD 2021, [facility] - no longer active Derm Here today for CPE c/o sinus infection sx started last mon, nasal congestion, gum and cheek pain, worse since onset. Discussed wt. Not eating daily calories. Sedentary. Optho overdue for exam. Plan - Continue all meds as prescribed. - Apply selenium sulfide shampoo to the scalp as needed. - Ensure regular mammogram appointments due to family history of breast cancer. - Consider vaccination for Pneumococcal if insurance coverage permits. - Focus on sleep hygiene, and implement stress reduction techniques. - Maintain the scheduled bone density sc reening in 2024. - Eat 1800 cals/day, aim to introduce mo re physical activity into the daily routine, gradually increasing as tolerated. Zpak for sinusitis. - Contact the clinic if there are any ne w concerns or symptoms arise. RTO 1 year CPE, sooner prn This note is constructed using voice recognition software. While every effort has been made to ensure accuracy in anchor tacker, still errors may have been included Sometimes, these errors may affect the content or meaning of the given sentence . An additional 20 minutes was spent addressing the problem(s) noted at todays visit. This includes time spent before the visit reviewing the chart, time spent during the visit, and time spent after the visit on documentation [facility] Medical History IBS (irritable bowel syndrome) Mitral valve prolapse Hiatal hernia GERD (gastroesophageal reflux disease) Osteopenia Obesity (BMI 30.0-34.9) Impaired glucose tolerance Cold sore Left leg pain Blood pressure elevated without history of HTN Otitis media Dyslipidemia Surgical History Hx of esophagogastroduodenoscopy H/O colonoscopy History of back surgery History of hysterectomy Family History (Updated 11/11/24 @ 15:28 by Elen Dinero CMA) Mother Essential hypertension Dyslipidemia Diabetes mellitus Father Parkinsons disease Other Mental health disorder Social History (Updated 11/11/24 @ 15:28 by Elen Dienro CMA) Housing: House Alcohol intake: current Alcohol intake frequency: does not drink Alcohol type: hard liquor Patient Tobacco Use Status: Former Tobacco user Tobacco use type: Cigarette Cigarettes Per Day: 10 Years Smoked: 12 e-Cigarette/Vaping Use: Never Used Second Hand Smoke Exposure: No service: No Current occupational status: employed 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 1. Little interest or pleasure in doing things: not at all 2. Feeling down, depressed, or hopeless: not at all 3. Trouble falling or staying asleep, or sleeping too much: not at all 4. Feeling tired or having little energy: not at all 5. Poor appetite or overeating: not at all 6. Feeling bad about yourself - or that you are a failure or have let yourself or your family down: not at all 7. Trouble concentrating on things, such as reading the newspaper or watching television: not at all 8. Moving or speaking so slowly that other people could have noticed. Or the opposite - being so fidgety or restless that you have been moving around a lot more than usual: not at all 9. Thoughts that you would be better off or of hurting yourself in some way: not at all Total score: 0 Depression Screening Interpretation: Negative Depression Screening Done: Yes 54854 - PHQ-9 Billing: Yes Source: Developed by Drs. Julio C Quijano, Mehnaz Alejo, Leonid Matos and colleagues, with an educational nithya from [employer]. Thrive Questionnaire Date Thrive assessed: 11/04/24 I am a: Patient What is your living situation today?: I have a steady place to live Within the past 12 months, did the food you bought not last and you didn't have the money to get more?: Never true Within the past 12 months, did you worry whether your food would run out before you got money to buy more?: Never true Do you have trouble paying for medicines?: No Do you have trouble getting transportation to medical appointments?: No Do you have trouble paying your heating and electricity bill?: No Do you have trouble taking care of your child, family member or friend?: No Do you have trouble with day-to-day activities such as bathing, preparing meals, shopping, managing finances, etc.?: No Are you currently unemployed and looking for a job?: No Are you interested in more education?: No Please select the resources that you would like help with: None Currently or been in a relationship where the following occur: No concerns reported THRIVE Score: 0 AUDIT C Alcohol Use Questionnaire (AUDIT-C) 1. How often do you have a drink containing alcohol?: Never 3. How often do you have six or more drinks on one occasion?: Never Total Score: 0 Score Reviewed/Action Taken: Yes CLARISSE-7 AMB Questionnaire CLARISSE-7 Date CLARISSE - 7 assessed: 11/11/24 Feeling nervous, anxious, or on edge: 0 = Not at all Not being able to stop or control worryin = Not at all Worrying too much about different things: 0 = Not at all Trouble relaxin = Not at all Being so restless that it is hard to sit still: 0 = Not at all Becoming easily annoyed or irritable: 0 = Not at all Feeling afraid as if something awful might happen: 0 = Not at all Total CLARISSE-7 score (0-4 normal; 5-9 mild; 10-14 moderate; 15-21 severe): 0 Source: Developed by Drs. Julio C Quijano, Mehnaz Alejo, Leonid Matos and colleagues, with an educational nithya from [employer]. CLARISSE-7 Assessment Billing CLARISSE-7 Assessment Tool: CLARISSE-7 Assessment 96955 Physical exam (Primary Care) Vital Signs: Last Vital Signs Pulse 90 11/11/24 15:28 BP 116/86 11/11/24 15:28 Pulse Ox 98 11/11/24 15:28 Oxygen Delivery Method Room Air 11/11/24 15:28 BMI result Body Mass Index 33.5 BMI Assessment/Plan discussion: High BMI High, discussed plan: lifestyle and dietary Tobacco/Smoking Status: Tobacco use Status Tobacco use date assessed 11/11/24 11/11/24 15:27 Patient Tobacco Use Status Former Tobacco user 11/11/24 15:28 Tobacco use type Cigarette 11/11/24 15:28 e-Cigarette/Vaping Use Never Used 11/11/24 15:28 PHQ-9: PHQ-9 Score PHQ-9: Total score 0 11/11/24 15:51 Depression Screening Interpretation: Negative Thrive Assessment: Date of Thrive Assessment Date Thrive assessed 11/04/24 11/11/24 15:23 Currently or been in a relationship where the following occur: No concerns reported Const Other: General: Well developed, well nourished, in no acute distress. Appears stated age. Head: Normocephalic, atraumatic. Eyes: Pupils are equal, round and reactive to light and accommodation. Conjunctivae are clear. Vision grossly normal. Ears: TMs clear AU, EACS WNL Nose: Patent, without discharge. Mouth: There are no ulcers or lesions noted. No inflammation, no post nasal drip, no plaques nor exudates. Neck: Supple, no adenopathy or thyromegaly. Lungs: Clear to auscultation bilaterally. No rales, rhonchi or wheeze noted. Good air flow in all atkinson. Breast: clinical breast exam done, normal nipple, skin; dense breast, no lumps. Edu performed on SBE Heart: Regular rate and rhythm. No murmurs, click, rubs or gallops are noted. Abdomen: Bowel sounds present in all quadrants. The abdomen is soft, nontender, with no masses or organomegaly noted. No hernias are noted. Musculoskeletal: Joints are nontender, without swelling, redness, or effusions. Range of motion is observed to be normal. Pulses: Peripheral pulses are equal and palpable bilaterally. Extremities: No clubbing, cyanosis nor edema is noted. Neurologic: Gait and station normal. Cranial Nerves 2-12 intact. Motor strength grossly symmetrical and intact. No sensory loss. Balance normal. Skin: No rashes, ulcers, or lesions noted. Turgor is good. Skin color is good. Hair and nails are without abnormalities. Psych: Normal eye contact, affect and mood appropriate, and normal interactions. Patient is alert and appropriate to context. Coding Level of Care Code Est Pt Level 3 (78205) Est Pt Prev Care 40-64y(42029) Diagnoses Encounter for general adult medical examination without abnormal findings Z00.00 Osteopenia M85.80 Laterality: unspecified laterality Laboratory exam ordered as part of routine general medical examination Z00.00 Seborrheic dermatitis of scalp L21.9 Post laminectomy syndrome M96.1 Obesity (BMI 30.0-34.9) E66.9 Dyslipidemia E78.5 Screening breast examination Z12.39 Family history of breast cancer Z80.3 Family history of Parkinson disease Z82.0 Cold sore B00.1 Acute bacterial sinusitis J01.90; B96.89 Additional Codes CLARISSE-7 Assessment Billing - CLARISSE-7 Assessment Tool: CLARISSE-7 Assessment 24605 ([id number]) PHQ-9 - 64157 - PHQ-9 Billing: Yes ([id number]) Assessment & Plan Assessment & Plan (1) Encounter for general adult medical examination without abnormal findings: Code(s): Z00.00 - Encounter for general adult medical examination without abnormal findings (2) Osteopenia: Code(s): M85.80 - Other specified disorders of bone density and structure, unspecified site Category: Medical Qualifiers: Laterality: unspecified laterality (3) Laboratory exam ordered as part of routine general medical examination: Code(s): Z00.00 - Encounter for general adult medical examination without abnormal findings Category: Medical (4) Seborrheic dermatitis of scalp: Code(s): L21.9 - Seborrheic dermatitis, unspecified Category: Medical (5) Post laminectomy syndrome: Code(s): M96.1 - Postlaminectomy syndrome, not elsewhere classified Category: Medical (6) Obesity (BMI 30.0-34.9): Code(s): E66.9 - Obesity, unspecified Category: Medical (7) Dyslipidemia: Code(s): E78.5 - Hyperlipidemia, unspecified Category: Medical (8) Screening breast examination: Code(s): Z12.39 - Encounter for other screening for malignant neoplasm of breast Category: Medical (9) Family history of breast cancer: Code(s): Z80.3 - Family history of malignant neoplasm of breast Category: Medical (10) Family history of Parkinson disease: Code(s): Z82.0 - Family history of epilepsy and other diseases of the nervous system Category: Medical (11) Cold sore: Code(s): B00.1 - Herpesviral vesicular dermatitis Category: Medical (12) Acute bacterial sinusitis: Code(s): J01.90 - Acute sinusitis, unspecified; B96.89 - Other specified bacterial agents as the cause of diseases classified elsewhere Plan . Orders: Orders XR DEXA axial skeleton Today M85.80 - Other specified disorders of bone density and structure, unspecified site, Z13.820 - Encounter for screening for osteoporosis Comprehensive [place]. Panel Fast Today Z00.00 - Encounter for general adult medical examination without abnormal findings Hemoglobin A1c Today Z00.00 - Encounter for general adult medical examination without abnormal findings Lipid Panel Today Z00.00 - Encounter for general adult medical examination without abnormal findings TSH reflex Free T4 Today Z00.00 - Encounter for general adult medical examination without abnormal findings Vitamin D 25-OH Total Today Z00.00 - Encounter for general adult medical examination without abnormal findings Microalbumin, Random (w Creat) Today Z00.00 - Encounter for general adult medical examination without abnormal findings Vitamin B12 and Folate Today Z00.00 - Encounter for general adult medical examination without abnormal findings Medications: New azithromycin For 250 mg dose pack: take 500 mg today (day 1), then 250 mg for 4 days (days 2-5) PO 6 tabs 0RF 5 days Changed From valacyclovir 1,000 mg PO BID 7 days 14 tabs 1RF To valacyclovir 1,000 mg PO BID 60 tabs 5RF 30 days Patient Instructions: Health screenings for women You should visit your health care provider from time to time, even if you are healthy. The purpose of these visits is to: Screen for medical issues Assess your risk for future medical problems Encourage a healthy lifestyle Update vaccinations and other preventive care services Help you get to know your provider in case of an illness Information Even if you feel fine, you should still see your provider for regular checkups. These visits can help you avoid problems in the future. For example, the only way to find out if you have high blood pressure is to have it checked regularly. High blood sugar and high cholesterol levels also may not have any symptoms in the early stages. A simple blood test can check for these conditions. There are specific times when you should see your provider or receive specific health screenings. The [place] Preventive Services Task Force publishes a list of recommended screenings. Below are screening guidelines for women ages 18 to 39. BLOOD PRESSURE SCREENING Your blood pressure should be checked at least once every 3 to 5 years if: Your blood pressure is in the normal range (top number less than 120 mm Hg and bottom number less than 80 mm Hg) You don't have risk factors for high blood pressure Ask your provider if you need your blood pressure checked more often if: The top number is 120 to 129 mm Hg or the bottom number is 70 to 79 mm Hg You have diabetes, heart disease, kidney problems, are overweight, or have certain other health conditions You have a first-degree relative with high blood pressure You are Black You had high blood pressure during a If the top number is 130 mm Hg or greater or the bottom number is 80 mm Hg or greater, this is considered stage 1 hypertension. Schedule an appointment with your provider to learn how you can reduce your blood pressure. Watch for blood pressure screenings in your area. Ask your provider if you can stop in to have your blood pressure checked. BREAST CANCER SCREENING Experts do not agree about the benefits of breast self-exams in finding breast cancer or saving lives. Talk to your provider about what is best for you. A screening mammogram is not recommended for most women under age 40. Your provider may discuss and recommend mammograms, MRI scans, or ultrasounds if you have an increased risk for breast cancer, such as: A mother or sister who had breast cancer at a young age (most often starting screening earlier than the age the close relative was diagnosed) You carry a high-risk genetic marker CERVICAL CANCER SCREENING Cervical cancer screening should start at age 21 years unless your provider advises otherwise. After the first test: Women ages 21 through 29 should have a Pap test every 3 years. Exoprts do not agree on whether HPV testing is recommended for this age group. Women ages 30 through 65 should be screened with either a Pap test every 3 years or the HPV test every 5 years or both tests every 5 years (called cotesting ). Women who have been treated for precancer (cervical dysplasia) should continue to have Pap tests for 20 years after treatment or until age 65, whichever is longer. If you have had your uterus and cervix removed (total hysterectomy), and you have not been diagnosed with cervical cancer or precancer (high grade cervical neoplasia), you do not need cervical cancer screening. CHOLESTEROL SCREENING Cholesterol screening should begin at: Age 45 for women with no known risk factors for coronary heart disease Age 20 for women with known risk factors for coronary heart disease Repeat cholesterol screening should take place: Every 5 years for women with normal cholesterol levels More often if changes occur in lifestyle (including weight gain and diet) More often if you have diabetes, heart disease, kidney problems, or certain other conditions DIABETES SCREENING You should be screened for diabetes starting at age 35 and then repeated every 3 years if you have no risk factors for diabetes. Screening may need to start earlier and be repeated more often if you have other risk factors for diabetes, such as: You have a first degree relative with diabetes. You are overweight or have obesity. You have high blood pressure, prediabetes, or a history of heart disease. Screening for diabetes should be done if you are planning to become and you are overweight and have other risk factors such as high blood pressure. DENTAL EXAM Go to the dentist once or twice every year for an exam and cleaning. Your dentist will evaluate if you need more frequent visits. EYE EXAM Have an eye exam every 5 to 10 years before age 40. If you have vision problems, have an eye exam every 2 years or more often if recommended by your provider. You should have an eye exam that includes an examination of your retina (back of your eye) at least every year if you have diabetes. IMMUNIZATIONS Commonly needed vaccines include: Flu shot: get one every year. COVID-19 vaccine: ask your provider what is best for you. Tetanus-diphtheria and acellular pertussis (Tdap) vaccine: have one at or after age 19 as one of your tetanus-diphtheria vaccines if you did not receive it as an adolescent. Tetanus-diphtheria: have a booster (or Tdap) every 10 years. Varicella vaccine: receive 2 doses if you never had chickenpox or the varicella vaccine. Hepatitis B vaccine: receive 2, 3, or 4 doses, depending on your exact circumstances. Measles, mumps, and rubella (MMR) vaccine: receive 1 to 2 doses if you are not already immune to MMR. Your provider can tell you if you are immune. Ask your provider about the human papillomavirus (HPV) vaccine if: You have not received the HPV vaccine in the past You have not completed the full vaccine series (you should catch up on this shot) Ask your provider if you should receive other immunizations if you have certain health problems that increase your risk for some diseases such as pneumonia. INFECTIOUS DISEASE SCREENING Women who are sexually active should be screened for chlamydia and gonorrhea up until age 25. Women 25 years and older should be screened for chlamydia and gonorrhea if at high risk. Screening for hepatitis C: All adults ages 18 to 79 should get a one-time test for hepatitis C. people should be screened at every . Screening for human immunodeficiency virus (HIV): All people ages 15 to 65 should get a one-time test for HIV. Depending on your lifestyle and medical history, you may also need to be screened for infections such as syphilis and HIV, as well as other infections. PHYSICAL EXAM All adults should visit their provider from time to time, even if they are healthy. The purpose of these visits is to: Screen for disease Assess your risk of future medical problems Encourage a healthy lifestyle Update your vaccinations and other preventive care services Maintain a relationship with a provider in case of an illness Your height, weight, and BMI should be checked at every exam. During your exam, your provider may ask you about: Depression and anxiety Diet and exercise Alcohol and tobacco use Safety issues, such as using seat belts, smoke detectors, and intimate partner violence Your medicines and risk for interactions SKIN SELF-EXAM Your provider may check your skin for signs of skin cancer, especially if you're at high risk, such as if you: Have had skin cancer before Have close relatives with skin cancer Have a weakened immune system OTHER SCREENING Talk with your provider about colon cancer screening if you have a strong family history of colon cancer or polyps, or if you have had inflammatory bowel disease or polyps yourself. Routine bone density screening of women under 40 is not recommended. Walk-In Care (Urgent Care): We Make it Easy Walk-in for urgent medical issues such as: ? Seasonal Allergies ? Insect Bites ? Cough ? Diarrhea ? Acute Asthma Attacks ? Back, Knee or Joint Pain ? Ear Infection ? Fever without a Rash ? Headaches ? Nausea ? [place] [facility], Rash or Skin Irritation ? Sore Throat ? Sports Physicals ? Vomiting Most insurances are accepted. Patients do not need to be part of the [facility] to seek care at the walk-in clinic. Locations [facility] , [place] [address] ? [phone] [facility] Walk-In Care in [place] provides services to ages 18 and over. Open Monday-Monday: 8 a.m. to 5 p.m. and Monday: 9 a.m. to 3 p.m.* *Hours may vary due to staffing availability. To confirm Walk-In Care hours in [place], please call [phone]. [address] [place] [address], [place] [address] ? [phone] [facility] Walk-In Care in [place] provides services to ages 12 and over. Open Monday-Monday: 8 a.m. to 5 p.m. Hours may vary due to staffing availability. To confirm Walk-In Care hours in [place], please call [phone]. LABORATORY SERVICES: [facility] Lab ? Primary Location [address] [place] [address] Monday through Monday 6:00 AM ? 5:00 PM Monday 7:00 AM ? 11:00 AM* [phone] The [facility] Lab is centrally located near the front entrance of the [facility] for easy outpatient access. Convenient parking is provided for outpatients. *Hours may vary due to staffing availability. To confirm Laboratory hours for any location, please call [phone]. Offsite Location For your convenience, we offer offsite laboratory draw stations at the following locations: [address] [place] [address] ? [address], [address] Monday through Monday 7:30 AM ? 1:00 PM* [phone] *Hours may vary due to staffing availability. To confirm Laboratory hours for any location, please call [phone]. [place] ? [address] Monday through Monday 6:00 AM ? 3:30 PM* Monday 6:30 AM ? 3 PM* [phone] *Hours may vary due to staffing availability. To confirm Laboratory hours for any location, please call [phone] [place] [address] Monday through Monday 7:30 AM ? 4:00 PM* [phone] *Hours may vary due to staffing availability. To confirm Laboratory hours for any location, please call [phone] [place] [address] Monday through 9:00 AM ? 4:00 PM* *Hours may vary due to staffing availability. To confirm Laboratory hours for any location, please call [phone]. Appointments are not necessary. Walk-ins are welcome. Like all the departments throughout the [facility], our Lab undergoes frequent reviews to ensure the quality and accuracy of test results, and our staff takes special pride in its status as a nationally accredited facility. Patient Portal: ONE PATIENT. ONE RECORD. BETTER CARE. [facility] has a fully integrated, cutting- edge mobile electronic health information system that has revolutionized the way we care for our patients and manage our organization. This system improves communication and coordination enabling us to provide safe, higher-quality care, and an overall positive experience for staff and patients. Our first priority, as always, is to deliver the highest quality care possible. The system is running in the background supporting that priority. This portal is for all [facility] services and practices. If you are experiencing any technical difficulties with enrolling or logging into the Patient Portal please complete the [facility] Patient Portal Technical Support Form. [facility] now offers a new secure on-line interactive tool for patients to review their health information ? ?Patient Portal. This interactive web portal will enable patients and their families to take an active role in their care by providing easy, secure access to their health information via the internet. The Patient Portal provides patients with instant access to their health information, including laboratory results, medications, allergies, demographic information, visit history, and more. In addition to managing their own care, parents and health care proxies with authorized consent will appreciate the ability to access the records of those individuals for whom they provide care. Please note: if you wish to gain access (Proxy) to another patient?s portal, you will be required to come to the Medical Records Department in person at [facility]. Both the patient giving proxy access and the proxy will need to provide photo identification and complete the appropriate authorization. The Patient Portal also allows track their appointments online. The [facility] Patient Portal also saves patients time by allowing them to submit updates to their demographic and contact information prior to their visits. Portal email notifications will also alert patients to any new activity on their portal, such as test results and new appointments. In order to initially enroll in the [facility] Patient Portal, you will need to enter some required information including the following: * your [facility] Medical Record number * your personal home email address * name * date of Please note: In order to enroll in the [facility] Patient Portal, we need to have your email address on file in your electronic medical record. ?The email address needs to be specific for one person (yourself) in order for your Portal enrollment to be successful. ?You can update your email address in person with our Registration staff when you are registering for a hospital visit. ?Otherwise, you will need to come to the Health Information Management (Medical Records) Department at [facility]. ?We are open from Monday ? Monday from 7:30 a.m. ? 4:30 p.m. ?You will be required to present a photo id. Once you have successfully enrolled in the Patient Portal, you will receive a one-time user id and password for the Portal, sent to your email address. ?This will allow you to log into the Patient Portal within 99 hrs and reset your own logon id and password, and define personal security questions. ?Once your p ermanent login and password have been set, you can log into the [facility] Patient Portal at any time via the blue button above or from the Portal Logon button on any page of the [facility] website. [facility] and [facility] encourage all of our patients to enroll in Patient Portal as it presents a valuable opportunity for patients and their families to actively participate in their care and stay healthy Welcome to [facility]. ?We look forward to working with you. Dr. Ifeoma Smyth [facility] [place], [place]
[2024-11-11 15:28] VITALS: BP 116/86; PULSE 90; O2SAT 98; BMI 33.5
== END 2024-11-11 16:31 | disposition home or self-care (01) ==
PROVIDERS: PCP Nurse Practitioner Family; Visit Provider Nurse Practitioner Family
DX: Z00.00 Encounter for general adult medical examination without abnormal findings (principal); M85.80 Other specified disorders of bone density and structure, unspecified site; E66.9 Obesity, unspecified; Z68.33 Body mass index [BMI] 33.0-33.9, adult; L21.9 Seborrheic dermatitis, unspecified; M96.1 Postlaminectomy syndrome, not elsewhere classified; E78.5 Hyperlipidemia, unspecified; Z12.39 Encounter for other screening for malignant neoplasm of breast; Z80.3 Family history of malignant neoplasm of breast; Z82.0 Family history of epilepsy and other diseases of the nervous system; B00.1 Herpesviral vesicular dermatitis; J01.90 Acute sinusitis, unspecified

== ENCOUNTER → 2024-11-11 15:18 | Outpatient (BNVA) | payer OTHER, SELFPAY | PROVIDERS: PCP Nurse Practitioner Family; Visit Provider Nurse Practitioner Family | DX: Z00.00 Encounter for general adult medical examination without abnormal findings (principal); M85.80 Other specified disorders of bone density and structure, unspecified site; L21.9 Seborrheic dermatitis, unspecified; M96.1 Postlaminectomy syndrome, not elsewhere classified; E66.9 Obesity, unspecified; Z68.33 Body mass index [BMI] 33.0-33.9, adult; E78.5 Hyperlipidemia, unspecified; B00.1 Herpesviral vesicular dermatitis; J01.90 Acute sinusitis, unspecified; B96.89 Other specified bacterial agents as the cause of diseases classified elsewhere; Z80.3 Family history of malignant neoplasm of breast; Z82.0 Family history of epilepsy and other diseases of the nervous system | CPT/HCPCS: 96127 ==

== ENCOUNTER 2024-11-20 07:59 | Outpatient (REF) | payer OTHER, SELFPAY ==
--- OUTSIDE RECORDS SUMMARY | 2024-11-20 08:03 | XMS_ITS | Patient Health Record ---
Author Organization [facility] Address [address] [place] [address] Care Team Providers Care Regional Sales Manager Name Role Phone Yocsata Webster Primary Care Provider UnavailJulio C Irving Unavailable [phone] ALLERGIES Allergen (clinical drug ingredient) Drug/Non Drug Allergy documented on EMR Reaction Allergy Type Onset Date Status moxifloxacin Avelox Unknown Drug Allergy Acti ve REASON FOR REFERRAL No Information MEDICATIONS Medication SIG (Take, Route, Frequency, Duration) Notes Start Date End Date Status Suprep Bowel Prep (17.5g/3.13g/1.6g) per 6 ounces as directed Orally once for 1 dose 11/30/2012 Active 1 tablet Orally QID prn abdominal bloating/cramps/diarrhea for 30 day(s) 11/30/2012 Active Calcium + D Active Biotin Active Aspir-81 81mg Active Simvastatin 20mg Act grisel valACYclovir HCl 500 MG 1 tablet Orally Once a day for 10 day(s) Active Fish Oil Active IMMUNIZATIONS Vaccine Route Administration Date Status Comme nts Influenza Unknown 10/04/2022 Administered SOCIAL HISTORY Sex Assigned At : Social History Observation Description Sex Assigned At Unknown PROBLEMS Problem Type ICD Code Onset Dates Problem Status W/U Status Risk SNOMED Code Notes Problem Colon cancer screening (Z12.11) Active confirmed 185746067 Problem Diverticulosis of large intestine without perforation or abscess without bleeding (K57.30) Active confirmed Diverticul ar disease of colon (336451263) Problem Preprocedural examination (Z01.818) Active confirmed 381645084374927 Problem Lactose intolerance (E73.9) Active confirmed 707944046 Problem Other irritable bowel syndrome (K58.8) Active confirmed 42906217 PLAN OF TREATMENT Future Test Test Name Order Date COLONOSCOPY 11/30/2012 COLONOSCOPY 02/15/2023 Insurance Providers Payer Name Payer Address Payer Phone Subscriber Number Group Number Insured Name Patient Relationship to Insured Coverage Start Date Coverage End Date [employer] [place] [address] [address] [place] [address] [id number] 2 KURTIS GAONA Self - patient is the insured MEDICAL (GENERAL) HISTORY Medical History History ICD Code EGD 11-03-2008-neg. duodenal and gastric biopsies GERD Small hiatal hernia Hyperlipidemia Diarrhea-chronic Lactose intolerance Neg. CT scan, U/S, and UGI series in 200 8 Mitral valve prolapse that she is being treated for. Negative colonoscopy in 02/2013 Surgical History Surgery Date(Month/Year) Complete hysterectomy for Endometriosis in her 20's Back surgery
[2024-11-20 08:42] LABS: Estimated Average Glucose 126 mg/dL; Hemoglobin A1C 154.5357 umol/L; Total Hemoglobin (HGBA1C) 3634.7116 umol/L
[2024-11-20 09:19] LABS: Alanine Aminotransferase 18 U/L (0-31); Albumin Level 4.4 g/dL (3.5-5.0); Alkaline Phosphatase 76 U/L (39-117); Anion Gap 10 (12-20); Aspartate Amino Transferase 20 U/L (5-31); Bilirubin Total 0.5 mg/dL (0.0-1.0); Blood Urea Nitrogen 18 mg/dL (9-16); Calcium 9.4 mg/dL (8.4-10.2); Carbon Dioxide 25 mmol/L (22-29); Chloride 111 mmol/L (96-108); Cholesterol 181 mg/dL (<200); Estimated Glomerular Filt Rate > 60; Glucose Fasting 121 mg/dL (60-99); HDL Cholesterol 47 mg/dL (>40); LDL Cholesterol Calculated 118 mg/dL (<100); Potassium 4.2 mmol/L (3.3-5.1); Sodium 142 mmol/L (135-145); Triglycerides 81 mg/dL (<150)
[2024-11-20 09:31] LABS: Creatinine Urine 291.23 mg/dL
[2024-11-20 09:42] LABS: Folate 12.6 ng/mL (> or = 4.0); TSH reflex Free T4 2.43 uIU/mL (0.32-4.0); Vitamin B12 216 pg/mL (200-900); Vitamin D 25-OH Total 38.4 ng/mL (>30)
== END 2024-11-20 08:00 | disposition home or self-care (01) ==
LOC: HO.LAB 07:59
PROVIDERS: PCP Nurse Practitioner Family; Visit Provider Nurse Practitioner Family
DX: Z00.00 Encounter for general adult medical examination without abnormal findings (principal); Z13.1 Encounter for screening for diabetes mellitus; Z13.29 Encounter for screening for other suspected endocrine disorder; Z13.220 Encounter for screening for lipoid disorders
CPT/HCPCS: 36415; 80053; 80061; 82043; 82306; 82570; 82607; 82746; 83036; 84443

== ENCOUNTER 2025-01-30 13:40 | Outpatient (REF) | payer OTHER, SELFPAY ==
--- NOTE | ~2025-01-30 | MM_ITS ---
EXAMINATION: DXA BONE DENSITY AXIAL HISTORY: Estrogen deficiency TECHNIQUE: [employer] Dual energy absorptiometry (DEXA) of the lumbar spine, total left hip, and femoral neck was performed. COMPARISON: Comparison is made with the prior examination dated 12/29/2021. FINDINGS: The bone mineral density of the lumbar spine is 1.019 with a T-score of -1.3, and a Z-score of -0.5. This is indicative of osteopenia. This represents a BMD change of -0.7% compared to the prior exam. This is not statistically significant. The bone mineral density of the left total hip is 0.828 with a T-score of -1.4, and a Z-score of -0.8. This is indicative of osteopenia. This represents a BMD change of -0.1% compared to the prior exam. This is not statistically significant. The bone mineral density of the left femoral neck is 0.726 with a T-score of -2.2, and a Z-score of -1.3. This is indicative of osteopenia. This represents a BMD change of -2.3% compared to the prior exam. MM/XR DEXA axial skeleton IMPRESSION: Based on bone mineral density, and according to World Health Organization (WHO) criteria, the diagnosis is consistent with osteopenia. All bone density values are in grams per centimeter squared (g/cm2). Statistically, 68% of repeat scans fall within 1 SD (+/- 0.010 g/cm2 for AP spine L1-L4) and 1 SD (+/- 0.012 g/cm2 for femur total) FRAX is a trademark of the [employer] [place] [employer] Metabolic Bone Disease, a World Health Organization (WHO) Collaborating Center. Electronically signed by: Julio C Barron MD 01/30/2025 02:34 PM EDT
--- NOTE | ~2025-01-30 | MM_ITS ---
EXAMINATION: MM SCREENING DIGITAL BREAST TOMOSYNTHESIS, BILATERAL CLINICAL INFORMATION: Screening. Asymptomatic. COMPARISON: Mammography: Comparison is made with available priors TECHNIQUE: Digital breast mammography with tomosynthesis is performed in both the craniocaudal and mediolateral oblique views along with computer-aided detection (CAD). FINDINGS: The breasts are almost entirely fatty (ACR BI-RADS breast composition Category a). There are no significant masses, abnormal calcifications, or other abnormalities. MM/MM tomosynthesis screening BI IMPRESSION: No mammographic evidence of malignancy. ASSESSMENT: BI-RADS BI-RADS 1 - Negative RECOMMENDATION: Routine annual mammography screening. 1 year F/U This examination should not preclude the clinical evaluation of a suspicious palpable abnormality. This patient's information was entered into a reminder system with a target due date for their next mammogram. Electronically signed by: Gaby Rojas DO 01/31/2025 09:06 AM [facility]
--- OUTSIDE RECORDS SUMMARY | 2025-01-30 16:14 | XMS_ITS | Patient Health Record ---
Author Organization [facility] Address [address] [place] [address] Care Team Providers Care Shoe Puller Name Role Phone Yocasta Webster Primary Care Provider UnavailJulio C Irving Unavailable [phone] Allergies Allergen (clinical drug ingredient) Drug/Non Drug Allergy documented on EMR Reaction Allergy Type Onset Date Status moxifloxacin Avelox Unknown Drug Allergy Acti ve Reason For Referral No Information Medications Medication SIG (Take, Route, Frequency, Duration) Notes [...] for 10 day(s) Active Fish Oil Active Immunizations Vaccine Route Administration Date Status Comme nts Influenza Unknown 10/04/2022 Administered Problems Problem Type SNOMED Code ICD Code Onset Dates Problem Status W/U Status Risk Notes Problem 459156245 Colon cancer screening (Z12.11) Active confirmed Problem Diverticular disease of colon (160207719) Diverticulosis of large intestine without perforation or abscess without bleeding (K57.30) Active confirmed Problem 379622385582728 Preprocedural examination (Z01.818) Active confirmed Problem 875252188 Lactose intolerance (E73.9) Active confirmed Problem 58044179 Other irritable bowel syndrome (K58.8) Active confirmed Plan Of Treatment Future Test Test Name Order Date COLONOSCOPY 11/30/2012 COLONOSCOPY 02/15/2023 Insurance Providers Payer Name Payer Address Payer Phone Subscriber Number Group Number Insured Name Patient Relationship to Insured Coverage Start Date Coverage End Date [employer] [place] [address] [address] [place] [address] [id number] 2 KURTIS GAONA Self - patient is the insured Medical (General) History Medical History History ICD Code EGD 11-03-2008-neg. duodenal and gastric biopsies GERD Small hiatal hernia Hyperlipidemia Diarrhea-chronic Lactose intolerance Neg. CT scan, U/S, and UGI series in 200 8 Mitral valve prolapse that she is being treated for. Negative colonoscopy in 02/2013 Surgical History Surgery Date(Month/Year) Complete hysterectomy for Endometriosis in her 20's Back surgery
== END 2025-01-30 13:41 | disposition home or self-care (01) ==
LOC: HO.MAMMO 13:40
PROVIDERS: PCP Nurse Practitioner Family; Visit Provider Nurse Practitioner Family
DX: Z12.31 Encounter for screening mammogram for malignant neoplasm of breast (principal); Z13.820 Encounter for screening for osteoporosis; M85.80 Other specified disorders of bone density and structure, unspecified site; E28.39 Other primary ovarian failure
CPT/HCPCS: 77063; 77067; 77080

== ENCOUNTER → 2025-01-30 14:00 | Outpatient (BNV) | payer OTHER, SELFPAY | PROVIDERS: PCP Nurse Practitioner Family; Visit Provider Radiology Diagnostic Radiology | DX: E28.39 Other primary ovarian failure (principal) | CPT/HCPCS: 77080 ==

== ENCOUNTER 2025-08-27 15:01 | Outpatient (AMB) | payer OTHER, SELFPAY ==
[2025-08-27 15:14] VITALS: BMI 32.4
--- NOTE | 2025-08-27 15:14 | MHC.OFFVIS ---
Vital Signs 08/27/25 15:14 Height 5 ft 2 in Weight 177 lb BMI 32.4 Intake Visit Reasons: left foot bunion Intake Note: Sophia is a 60 year old female who presents today as a New Patient with complaints of a Bunion on the Left Foot. She states the bunion has been going on for over 1 year and she has not tried any treatment or Xrays done at this time. She notes her 2nd toe is completely numb and her 3rd toe is starting to get numb as well. Allergies moxifloxacin (Avelox) Allergy (Severe, Verified 08/27/25 15:15) hives/rash penicillin V Allergy (Intermediate, Verified 08/27/25 15:15) hives prednisone Allergy (Mild, Verified 08/27/25 15:15) rash atorvastatin (Lipitor) Adverse Reaction (Intermediate, Verified 08/27/25 15:15) muscle aches Dairy- lactose intolerant Allergy (Intermediate, Uncoded 11/11/24 15:25) gi side effects Augmentin Allergy (Mild, Uncoded 11/11/24 15:25) GI side effects. Seasonal allergies Allergy (Mild, Uncoded 11/11/24 15:25) Sneezing HPI Comments Details: The patient is a 60-year-old female with a past medical history as seen below presenting with foot pain and numbness. The numbness in the left second and third toes has been present for a while, with no specific inciting event or injury reported. The patient reports a history of a back condition 20 years ago, which resulted in permanent nerve damage, affecting sensation to bilateral feet. The patient experiences a burning sensation in the feet, particularly when wearing shoes with heels for extended periods. The sensation is described as a burning feeling, with the left 2nd and 3rd toes and lateral aspect of the right foot remaining numb consistently. The bunion has not been previously evaluated with imaging, and the patient has not undergone any nerve studies or EMG tests. The bunion causes discomfort, especially when the foot is in contact with shoes, but there is no severe pain warranting surgical intervention at this time. [facility] Medical History (Updated 08/28/25 @ 10:16 by Niharika Roper DPM) Metatarsalgia Left foot pain Radiculopathy Neuropathy of both feet Hallux valgus (acquired), left foot IBS (irritable bowel syndrome) Mitral valve prolapse Hiatal hernia GERD (gastroesophageal reflux disease) Osteopenia Obesity (BMI 30.0-34.9) Impaired glucose tolerance Cold sore Left leg pain Blood pressure elevated without history of HTN Otitis media Dyslipidemia Surgical History Hx of esophagogastroduodenoscopy H/O colonoscopy History of back surgery History of hysterectomy Family History (Updated 11/11/24 @ 15:28 by Elen Dinero CMA) Mother Essential hypertension Dyslipidemia Diabetes mellitus Father Parkinsons disease Other Mental health disorder Social History (Updated 11/11/24 @ 15:28 by Elen Dinero CMA) Housing: House Alcohol intake: current Alcohol intake frequency: does not drink Alcohol type: hard liquor Patient Tobacco Use Status: Former Tobacco user Tobacco use type: Cigarette Cigarettes Per Day: 10 Years Smoked: 12 e-Cigarette/Vaping Use: Never Used Second Hand Smoke Exposure: No service: No Current occupational status: employed 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 - Musculoskeletal: Reports left forefoot pain. All systems reviewed & are unremarkable except as noted in HPI and below Physical Exam Vital Signs: BMI result Body Mass Index 32.4 Extrem Other: B/L LE Focused Physical Exam: Derm: No open lesions, abrasions, or wounds noted. Mild edema noted to the medial prominence of the left 1st met head. no clinical signs of infection. No ecchymosis or discoloration noted. Vasc: DP/PT pulses palpable. CFT < 3 secs. Temp gradient warm to warm. Pedal hair present. No varicosities noted. Neuro: Protective sensations diminished to the lateral aspect of the right foot and right 2nd and 3rd toes. MSK: HAV noted to the left hallux without crossover of toes. Pain on palpation to the medial prominence of the left 1st met. Mild pain with ROM of the left 1st MPJ. No crepitus or fluctuance noted. ROM of the remaining toes WNL. ROM of the hindfoot and ankle WNL. Minimally antalgic gait unassisted noted. Minimal pain on palpation to the plantar aspect of the left foot in the area of the metatarsal heads. Results Reviewed Results Reviewed: Ordered Left foot xrays, EMG, and NCV to be performed prior to next visit. Assessment & Plan Assessment & Plan (1) Neuropathy of both feet: Code(s): G57.93 - Unspecified mononeuropathy of bilateral lower limbs Category: Medical (2) Radiculopathy: Code(s): M54.10 - Radiculopathy, site unspecified Category: Medical (3) Hallux valgus (acquired), left foot: Code(s): M20.12 - Hallux valgus (acquired), left foot Category: Medical (4) Left foot pain: Code(s): M79.672 - Pain in left foot Category: Medical (5) Metatarsalgia: Code(s): M77.40 - Metatarsalgia, unspecified foot Category: Medical Plan Patient was informed and verbally consented to the use of an ambient scribe for clinic note documentation during this visit. I discussed with the patient the current symptoms of numbness and burning sensation in the feet, likely related to past nerve damage. I discussed the current symptoms of the bunion and we reviewed the conservative management options for the bunion, including the use of metatarsal pads, bunion sleeves, and toe separators, inserts, and the potential need for surgery if symptoms worsen. I explained the importance of obtaining x-rays and a nerve conduction study to better understand the underlying issues and guide further treatment. - Ordered nerve conduction study (EMG/NCV) to assess nerve function in the affected areas. - Ordered left foot x-rays to evaluate the structure and severity of the bunion. - Recommend use of metatarsal pads and toe separators to alleviate pressure and discomfort from the bunion. Provided patient with metatarsal pads. - Recommend wearing supportive shoe gear with inserts and avoid barefoot walking. Wear shoes with a wide toebox. RTC in 3 weeks for re-evaluation. Orders: Orders NE electromyogram (EMG) 08/27/25 G57.93 - Unspecified mononeuropathy of bilateral lower limbs, M54.10 - Radiculopathy, site unspecified XR foot LT min 3V 08/27/25 M20.12 - Hallux valgus (acquired), left foot NE nerve conduction velocity 08/27/25 G57.93 - Unspecified mononeuropathy of bilateral lower limbs, M54.10 - Radiculopathy, site unspecified Coding Level of Care Code New Pt Level 4 (46966) Diagnoses Neuropathy of both feet G57.93 Radiculopathy M54.10 Hallux valgus (acquired), left foot M20.12 Left foot pain M79.672 Metatarsalgia M77.40 Time Spent (min) 50
--- OUTSIDE RECORDS SUMMARY | 2025-08-27 18:43 | XMS_ITS | Patient Health Record ---
Author Organization [facility] Address [address] [place] [address] Care Team Providers Care Weekend Receptionist Name Role Phone Yocasta Webster Primary Care Provider UnavailJulio C Irving Unavailable [phone] Allergies Allergen (clinical drug ingredient) Drug/Non Drug Allergy documented on EMR Reaction Allergy Type Onset Date Status moxifloxacin Avelox Unknown Drug Allergy Acti ve Reason For Referral No Information Medications Medication SIG (Take, Route, Frequency, Duration) Notes Start Date End Date Status Suprep Bowel Prep (17.5g/3.13g/1.6g) per 6 ounces as directed Orally once; Duration: 1 dose 11/30/2012 Active 1 tablet Orally QID prn abdominal bloating/cramps/diarrhea; Duration: 30 day(s) 11/30/2012 Active Calcium + D Active Biotin Active Aspir-81 81mg Active Simvastatin 20mg Act grisel valACYclovir HCl 500 MG 1 tablet Orally Once a day; Duration: 10 day(s) Active Fish Oil Active Immunizations Vaccine Route Administration Date Status Comme nts Influenza Unknown 10/04/2022 Administered Problems Problem Type SNOMED Code ICD Code Onset Dates Problem Status W/U Status Risk Notes Problem Colon cancer screening (308755890) Colon cancer screening (Z12.11) Active confirmed Problem Diverticular disease of colon (409492334) Diverticulosis of large intestine without perforation or abscess without bleeding (K57.30) Active confirmed Problem Preprocedural examination (973093199207793) Preprocedural examination (Z01.818) Active confirmed Problem Intolerance to lactose (finding) (262239779) Lactose intolerance (E73.9) Active confirmed Problem Irritable bowel syndrome (12549687) Other irritable bowel syndrome (K58.8) Active confirmed Plan Of Treatment Future Test Test Name Order Date COLONOSCOPY 11/30/2012 COLONOSCOPY 02/15/2023 Insurance Providers Payer Name Payer Address Payer Phone Subscriber Number Group Number Insured Name Patient Relationship to Insured Coverage Start Date Coverage End Date [employer] [place] [address] [address] [place] [address] [id number] KURTIS GAONA Self - patient is [...]
== END 2025-08-27 15:30 | disposition home or self-care (01) ==
LOC: HO.HPODS 15:02
PROVIDERS: PCP Nurse Practitioner Family; Visit Provider Student in an Organized Health Care Education/Training Program
DX: M54.10 Radiculopathy, site unspecified (principal); M20.12 Hallux valgus (acquired), left foot; M79.672 Pain in left foot; G57.93 Unspecified mononeuropathy of bilateral lower limbs; M77.40 Metatarsalgia, unspecified foot
CPT/HCPCS: 99204

== ENCOUNTER 2025-08-28 07:21 | Outpatient (REF) | payer OTHER, SELFPAY ==
--- OUTSIDE RECORDS SUMMARY | 2025-08-28 07:25 | XMS_ITS | Patient Health Record ---
Author Organization [facility] Address [address] [place] [address] Care Team Providers Care Wireless Sales Consultant Name Role Phone Yocasta Webster Primary Care Provider UnavailJulio C Irving Unavailable [phone] Allergies Allergen (clinical drug ingredient) Drug/Non Drug [...] Status Risk Notes Problem Colon cancer screening (628312597) Colon cancer screening (Z12.11) Active confirmed Problem Diverticular disease of colon (327765150) Diverticulosis of large intestine without perforation or abscess without bleeding (K57.30) Active confirmed Problem Preprocedural examination (833448777597344) Preprocedural examination (Z01.818) Active confirmed Problem Intolerance to lactose (finding) (832826752) Lactose intolerance (E73.9) Active confirmed Problem Irritable bowel syndrome (58291841) Other irritable bowel syndrome (K58.8) Active confirmed Plan Of Treatment Future Test Test Name Order Date COLONOSCOPY 11/30/2012 COLONOSCOPY 02/15/2023 Insurance Providers Payer Name Payer Address Payer Phone Subscriber Number Group Number Insured Name Patient Relationship to Insured Coverage Start Date Coverage End Date [employer] [place] [address] [address] [place] [address] [id number] 2 KURTIS GAONA Self - patient is [...]
== END 2025-08-28 07:22 | disposition home or self-care (01) ==
LOC: HO.LAB 07:21
PROVIDERS: PCP Nurse Practitioner Family; Visit Provider Student in an Organized Health Care Education/Training Program
DX: Z13.89 Encounter for screening for other disorder (principal)

== ENCOUNTER 2025-08-29 10:30 | Outpatient (REF) | payer OTHER, SELFPAY ==
--- NOTE | ~2025-08-29 | XR_ITS ---
EXAMINATION: XR FOOT, LEFT CLINICAL INFORMATION: M20.12 - Hallux valgus (acquired), left foot COMPARISON: None available. TECHNIQUE: AP, lateral, and oblique views of the left foot. FINDINGS: No acute cortical disruption or malalignment. No lytic or blastic lesions. Loss of the plantar arch. Small 3 mm spur, plantar calcaneus. No gross joint effusion. No subcutaneous emphysema. XR/XR foot LT min 3V IMPRESSION: Concerning pes planus. Electronically signed by: Brian Kraus MD 08/29/2025 10:58 AM EDT
--- OUTSIDE RECORDS SUMMARY | 2025-08-29 12:39 | XMS_ITS | Patient Health Record ---
Author Organization [facility] Address [address] [place] [address] Care Team Providers Care Radio Antenna Installer Name Role Phone Yocasta Webster Primary Care Provider UnavailJulio C Irving Unavailable [phone] Allergies Allergen (clinical drug ingredient) Drug/Non Drug [...] Status Risk Notes Problem Colon cancer screening (966932635) Colon cancer screening (Z12.11) Active confirmed Problem Diverticular disease of colon (689043318) Diverticulosis of large intestine without perforation or abscess without bleeding (K57.30) Active confirmed Problem Preprocedural examination (549415294531396) Preprocedural examination (Z01.818) Active confirmed Problem Intolerance to lactose (finding) (142968577) Lactose intolerance (E73.9) Active confirmed Problem Irritable bowel syndrome (54455661) Other irritable bowel syndrome (K58.8) Active confirmed Plan Of Treatment Future Test Test Name Order Date COLONOSCOPY 11/30/2012 COLONOSCOPY 02/15/2023 Insurance Providers Payer Name Payer Address Payer Phone Subscriber Number Group Number Insured Name Patient Relationship to Insured Coverage Start Date Coverage End Date [employer] [place] [address] [address] [place] [address] [id number] 2 KURTIS GAONA Self - patient is [...]
== END 2025-08-29 10:31 | disposition home or self-care (01) ==
LOC: HO.XRAY 10:30
PROVIDERS: Visit Provider Student in an Organized Health Care Education/Training Program
DX: M20.12 Hallux valgus (acquired), left foot (principal)
CPT/HCPCS: 73630

== ENCOUNTER → 2025-08-29 10:32 | Outpatient (BNV) | payer OTHER, SELFPAY | PROVIDERS: Visit Provider Radiology Diagnostic Radiology | DX: M20.12 Hallux valgus (acquired), left foot (principal) | CPT/HCPCS: 73630 ==

== ENCOUNTER 2025-09-03 11:38 | Outpatient (REF) | payer OTHER, SELFPAY ==
--- NOTE | 2025-09-03 11:42 | EMG_ITS ---
Chief complaint: Lower back surgery more than 20 years ago. Almost immediately after surgery, started having numbness in right lower extremity. This has continued until now, described as numbness in the lateral aspect of right foot. Over the last year, has noted numbness on 2nd and 3rd toes. She continues to have lower back pain. The numbness is much more pronounced with walking or standing, but also when she is supine. No footdrop. No weakness. No atrophy. Patient is not diabetic. Last lumbar MRI 2022, showing only mild spinal stenosis, with evidence of surgery on L5-S1. Reason for referral: Evaluate for neuropathy versus radiculopathy Referred by: Dr. Viveros Procedure done: Bilateral lower extremity NCS/EMG Precautions and/or limitations: Previous lumbar surgery - for this reason paraspinal EMG examination deferred, not reliable to show accurate diagnostic evidence evidence The limb temperature was monitored continuously and remained between 32-36 degrees C during the performance of the NCS. Nerve Conduction Studies Anti Sensory Summary Table ?Stim Site NR Onset (ms) Norm Onset (ms) Peak (ms) Norm Peak (ms) O-P Amp (?V) Norm O-P Amp Site1 Site2 Delta-0 (ms) Dist (cm) Duane (m/s) Norm Duane (m/s) Left Sural Anti Sensory (Lat Mall) Calf ? 2.5 3.4 <4.0 8.4 >5.0 Calf Lat Mall 2.5 14.0 56 Right Sural Anti Sensory (Lat Mall) Calf ? 2.3 3.2 <4.0 11.1 >5.0 Calf Lat Mall 2.3 14.0 61 Motor Summary Table ?Stim Site NR Onset (ms) Norm Onset (ms) O-P Amp (mV) Norm O-P Amp iAmp (mV) Amp (1st) (%) Site1 Site2 Delta-0 (ms) Dist (cm) Duane (m/s) Norm Duane (m/s) Left Peroneal Motor (Ext Dig Brev) Ankle ? 3.8 <4.0 6.2 >2.5 6.8 100.0 Ankle Ext Dig Brev 3.8 0.0 B Fib ? 9.1 5.8 6.5 93.5 B Fib Ankle 5.3 28.0 53 >40 Poplt ? 9.8 5.5 6.1 88.7 Poplt B Fib 0.7 5.0 71 >40 Right Peroneal Motor (Ext Dig Brev) Ankle ? 3.7 <4.0 3.4 >2.5 3.8 100.0 Ankle Ext Dig Brev 3.7 0.0 B Fib ? 9.5 3.1 3.4 91.2 B Fib Ankle 5.8 26.5 46 >40 Poplt ? 10.3 3.2 3.4 94.1 Poplt B Fib 0.8 6.0 75 >40 Left Tibial Motor (Abd Soriano Brev) Ankle ? 3.4 <5 8.7 >2.5 11.2 100.0 Ankle Abd Soriano Brev 3.4 0.0 Knee ? 9.8 3.8 5.2 43.7 Knee Ankle 6.4 35.0 55 >40 Right Tibial Motor (Abd Soriano Brev) Ankle ? 3.0 <5 12.3 >2.5 17.0 100.0 Ankle Abd Soriano Brev 3.0 0.0 Knee ? 9.6 6.2 8.8 50.4 Knee Ankle 6.6 34.0 52 >40 EMG ?Side Muscle Nerve Root Ins Act Fibs Psw Amp Dur Poly Recrt Int Pat Comment Right AbdHallucis MedPlantar S1-2 Nml Nml Nml Nml Nml 0 Nml Complete Right AntTibialis Dp Br Peron L4-5 Nml Nml Nml Nml Nml 0 Nml Complete Right PostTibialis Tibial L5, S1 Nml Nml Nml Nml Nml 0 Nml Complete Right MedGastroc Tibial S1-2 Incr 1+ 1+ Incr Incr 0 Nml Complete Right VastusMed Femoral L2-4 Nml Nml Nml Nml Nml 0 Nml Complete Left AbdHallucis MedPlantar S1-2 Nml Nml Nml Nml Nml 0 Nml Complete Left AntTibialis Dp Br Peron L4-5 Incr 1+ 1+ Incr Nml 0 Nml Complete Left PostTibialis Tibial L5, S1 Nml Nml Nml Nml Nml 0 Nml Complete Left MedGastroc Tibial S1-2 Incr 1+ 1+ Nml Nml 0 Nml Complete Left VastusMed Femoral L2-4 Nml Nml Nml Nml Nml 0 Nml Complete FINDINGS: All motor and sensory nerves tested showed normal latencies, amplitudes and conduction velocities. Concentric needle EMG was performed in selected muscles of the bilateral lower extremity and lumbar paraspinals. Study revealed signs of electric abnormalities as shown in the table above. Right medial gastrocnemius showed increased insertional activity, PSWs and fibrillations, increased duration and amplitude. Left medial gastrocnemius and tibialis anterior showed increased insertional activity, PSWs and fibrillations. These are L5-S1 innervated muscles, showing more chronic reinnervation on right side, more acute denervation on left side. No acute denervation seen on more proximal muscles. No myopathic looking units. No fasciculations seen. IMPRESSION: 1. This is an abnormal study. 2. There are electrodiagnostic findings suggestive L5-S1 radiculopathy, right chronic versus more acute on left side. 3. There is no electrodiagnostic evidence for peroneal neuropathy, tibial neuropathy, lumbosacral plexopathy, or peripheral neuropathy. CLINICAL COMMENT: It would be reasonable to obtain further imaging such as lumbar MRI. Thank you for your kind referral. Shellie Anderson MD, MARGRAITA Board Certified, [place] Board [employer] and Rehabilitation (ABPMR) Board Certified, [place] Board of Electrodiagnostic Medicine (ABEM) CODIN [id number], 2 extremities MTDD
== END 2025-09-03 11:39 | disposition home or self-care (01) ==
LOC: HO.NEURO 11:38
PROVIDERS: Visit Provider Student in an Organized Health Care Education/Training Program
DX: G57.93 Unspecified mononeuropathy of bilateral lower limbs (principal)
CPT/HCPCS: 95886; 95909

== ENCOUNTER → 2025-09-03 11:42 | Outpatient (BNV) | payer OTHER, SELFPAY | PROVIDERS: Visit Provider Physical Medicine & Rehabilitation | DX: M54.50 Low back pain, unspecified (principal); R20.2 Paresthesia of skin | CPT/HCPCS: 95886; 95909 ==

== ENCOUNTER → 2025-09-19 17:56 | Outpatient (BNV) | payer OTHER, SELFPAY | PROVIDERS: PCP Nurse Practitioner Family; Visit Provider Radiology Diagnostic Radiology | DX: M54.31 Sciatica, right side (principal) | CPT/HCPCS: 72148 ==

== ENCOUNTER 2025-09-19 18:13 | Outpatient (REF) | payer OTHER, SELFPAY ==
--- NOTE | ~2025-09-19 | MR_ITS ---
CLINICAL HISTORY: M54.31 - Sciatica, right side Exam: MRI lumbar spine without IV contrast Comparison: MR/REG/SR - MR LUMBAR SPINE WITHOUT IV CONTRAST - 08/29/22 07:36 EDT Findings: Lumbar spine alignment is normal. No acute fracture, osseous lesion or suspicious bone marrow signal. T12 subcentimeter hemangioma is unchanged. Multilevel small prevertebral osteophytes. Conus medullaris terminates at L1, normal morphology. Unremarkable imaged SI joints. Unremarkable paraspinal musculature. Left renal parapelvic cysts, same as before. T11-12: Small posterior central focal disc protrusion and annular fissure, mild central canal stenosis, bilateral facet arthrosis, no foraminal narrowing. Stable. T12-L1: Minimal diffuse posterior disc bulge. No central canal stenosis or foraminal narrowing. Remarkable facets. Stable. L1-2: Mild annular disc bulge, slightly more conspicuous in the left posterior paracentral region, causing mild central canal stenosis, the disc is approaching left L2 descending nerve root without obvious compression. Mild left foraminal narrowing, no right foraminal narrowing. Unremarkable facets. Stable. L2-3: Minimal diffuse posterior disc bulge. No apparent central canal stenosis or foraminal narrowing. Minor facet arthrosis. Improved. L3-4: Tiny posterior annular fissure, no disc protrusion or bulge. Mild facet arthrosis. No central canal stenosis. Mild foraminal narrowing bilaterally. Stable. L4-5: No disc protrusion or bulge. No central canal stenosis. Mild facet arthrosis. Mild foraminal narrowing bilaterally. Stable. L5-S1: Stable postsurgical changes related to right laminectomy with adjacent soft tissue scar, more conspicuous laterally abutting dural sac, no substantial change. Equivocal posterior bulge of the disklike material. No central canal stenosis. Minor facet arthrosis. No foraminal narrowing. Impression: 1. Stable postsurgical changes of L5-S1 right laminectomy with adjacent soft tissue scar. 2. Mild degenerative spondylosis of the lumbar spine, mildly improved at L2-3, stable at the other levels. This document has been electronically signed by: Little Jamison MD on 09/23/2025 14:12:24
== END 2025-09-19 18:14 | disposition home or self-care (01) ==
LOC: HO.MRI 18:13
PROVIDERS: PCP Nurse Practitioner Family; Visit Provider Nurse Practitioner Family
DX: M54.31 Sciatica, right side (principal); M96.1 Postlaminectomy syndrome, not elsewhere classified; M79.605 Pain in left leg; M79.604 Pain in right leg; M54.10 Radiculopathy, site unspecified
CPT/HCPCS: 72148

== ENCOUNTER 2025-10-29 08:32 | Outpatient (AMB) | payer OTHER, SELFPAY ==
[2025-10-29 08:38] VITALS: BMI 32.4
--- NOTE | 2025-10-29 08:38 | MHC.OFFVIS ---
Vital Signs 10/29/25 08:38 Height 5 ft 2 in Weight 177 lb BMI 32.4 Intake Visit Reasons: Lt foot bunion Intake Note: Sophia is a 60 year old female who presents to the office today for a follow up left foot bunion. At last visit patient was provided with metatarsal pads, EMG/NCV, and x-rays were ordered. EMG and X-rays completed and in chart for review. Pt states everything is going well and she has no further questions or concerns. Allergies moxifloxacin (Avelox) Allergy (Severe, Verified 10/29/25 08:39) hives/rash penicillin V Allergy (Intermediate, Verified 10/29/25 08:39) hives prednisone Allergy (Mild, Verified 10/29/25 08:39) rash atorvastatin (Lipitor) Adverse Reaction (Intermediate, Verified 10/29/25 08:39) muscle aches Dairy- lactose intolerant Allergy (Intermediate, Uncoded 11/11/24 15:25) gi side effects Augmentin Allergy (Mild, Uncoded 11/11/24 15:25) GI side effects. Seasonal allergies Allergy (Mild, Uncoded 11/11/24 15:25) Sneezing HPI Comments Details: The patient is a 60 year old female presenting for a follow-up due to a left foot bunion. She reports persistent numbness in her toes, and she recently underwent nerve conduction studies, left foot x-ray, and an MRI. She states her left foot bunion can appear more prominent on some days due to swelling. She manages foot discomfort by wearing metatarsal pads in her work shoes. These pads provide cushioning and have also helped alleviate some pressure. She notes that her pain, described as a burning sensation, is significantly worse when wearing shoes with a heel for extended periods. She has tried toe separators in the past but found them to be too uncomfortable to wear. She denies any new pedal injuries. She denies any other pedal concerns. [facility] Medical History (Updated 08/28/25 @ 10:16 by Niharika Roper DPM) Metatarsalgia Left foot pain Radiculopathy Neuropathy of both feet Hallux valgus (acquired), left foot IBS (irritable bowel syndrome) Mitral valve prolapse Hiatal hernia GERD (gastroesophageal reflux disease) Osteopenia Obesity (BMI 30.0-34.9) Impaired glucose tolerance Cold sore Left leg pain Blood pressure elevated without history of HTN Otitis media Dyslipidemia Surgical History Hx of esophagogastroduodenoscopy H/O colonoscopy History of back surgery History of hysterectomy Family History (Updated 11/11/24 @ 15:28 by Elen Dinero CMA) Mother Essential hypertension Dyslipidemia Diabetes mellitus Father Parkinsons disease Other Mental health disorder Social History (Updated 11/11/24 @ 15:28 by Elen Dinero CMA) Housing: House Alcohol intake: current Alcohol intake frequency: does not drink Alcohol type: hard liquor Patient Tobacco Use Status: Former Tobacco user Tobacco use type: Cigarette Cigarettes Per Day: 10 Years Smoked: 12 e-Cigarette/Vaping Use: Never Used Second Hand Smoke Exposure: No service: No Current occupational status: employed 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 - Musculoskeletal: Reports left forefoot mild pain due to left foot bunion. All systems reviewed & are unremarkable except as noted in HPI and below Physical Exam Vital Signs: BMI result Body Mass Index 32.4 Extrem Other: B/L LE Focused Physical Exam: Derm: No open lesions, abrasions, or wounds noted. Mild edema noted to the medial prominence of the left 1st met head in the area of the bunion. No clinical signs of infection. No ecchymosis or discoloration noted. No maceration or hyperkeratotic areas noted. Vasc: DP/PT pulses palpable. CFT < 3 secs. Temp gradient warm to warm. Pedal hair present. No varicosities noted. Neuro: Protective sensations diminished to the lateral aspect of the right foot and right 2nd and 3rd toes. MSK: Tracking HAV noted to the left hallux without crossover of toes. Mild pain on palpation to the medial prominence of the left 1st met. Mild pain with ROM of the left 1st MPJ. No crepitus or fluctuance noted. ROM of the remaining toes WNL. ROM of the hindfoot and ankle WNL. Minimally antalgic gait unassisted noted. Minimal pain on palpation to the plantar aspect of the left foot in the area of the metatarsal heads. Pes planus foot type. Results Reviewed Results Reviewed: Podiatry read of left foot x-ray (08/29/2025): Mild Hallux valgus noted with 1st IM angle of approximately 12.14 degrees. Plantar calcaneal spur noted with Cyndee's deformity. Pes planus foot type noted. No acute fractures or dislocations noted. Left foot x-ray (08/29/2025): FINDINGS: No acute cortical disruption or malalignment. No lytic or blastic lesions. Loss of the plantar arch. Small 3 mm spur, plantar calcaneus. No gross joint effusion. No subcutaneous emphysema. IMPRESSION: Concerning pes planus. Lumbar spine MRI (09/23/2025): Findings: Lumbar spine alignment is normal. No acute fracture, osseous lesion or suspicious bone marrow signal. T12 subcentimeter hemangioma is unchanged. Multilevel small prevertebral osteophytes. Conus medullaris terminates at L1, normal morphology. Unremarkable imaged SI joints. Unremarkable paraspinal musculature. Left renal parapelvic cysts, same as before. T11-12: Small posterior central focal disc protrusion and annular fissure, mild central canal stenosis, bilateral facet arthrosis, no foraminal narrowing. Stable. T12-L1: Minimal diffuse posterior disc bulge. No central canal stenosis or foraminal narrowing. Remarkable facets. Stable. L1-2: Mild annular disc bulge, slightly more conspicuous in the left posterior paracentral region, causing mild central canal stenosis, the disc is approaching left L2 descending nerve root without obvious compression. Mild left foraminal narrowing, no right foraminal narrowing. Unremarkable facets. Stable. L2-3: Minimal diffuse posterior disc bulge. No apparent central canal stenosis or foraminal narrowing. Minor facet arthrosis. Improved. L3-4: Tiny posterior annular fissure, no disc protrusion or bulge. Mild facet arthrosis. No central canal stenosis. Mild foraminal narrowing bilaterally. Stable. L4-5: No disc protrusion or bulge. No central canal stenosis. Mild facet arthrosis. Mild foraminal narrowing bilaterally. Stable. L5-S1: Stable postsurgical changes related to right laminectomy with adjacent soft tissue scar, more conspicuous laterally abutting dural sac, no substantial change. Equivocal posterior bulge of the disklike material. No central canal stenosis. Minor facet arthrosis. No foraminal narrowing. Impression: 1. Stable postsurgical changes of L5-S1 right laminectomy with adjacent soft tissue scar. 2. Mild degenerative spondylosis of the lumbar spine, mildly improved at L2-3, stable at the other levels. Nerve conduction study tests (09/03/2025): FINDINGS: All motor and sensory nerves tested showed normal latencies, amplitudes and conduction velocities. Concentric needle EMG was performed in selected muscles of the bilateral lower extremity and lumbar paraspinals. Study revealed signs of electric abnormalities as shown in the table above. Right medial gastrocnemius showed increased insertional activity, PSWs and fibrillations, increased duration and amplitude. Left medial gastrocnemius and tibialis anterior showed increased insertional activity, PSWs and fibrillations. These are L5-S1 innervated muscles, showing more chronic reinnervation on right side, more acute denervation on left side. No acute denervation seen on more proximal muscles. No myopathic looking units. No fasciculations seen. IMPRESSION: 1. This is an abnormal study. 2. There are electrodiagnostic findings suggestive L5-S1 radiculopathy, right chronic versus more acute on left side. 3. There is no electrodiagnostic evidence for peroneal neuropathy, tibial neuropathy, lumbosacral plexopathy, or peripheral neuropathy. Assessment & Plan Assessment & Plan (1) Neuropathy of both feet: Code(s): G57.93 - Unspecified mononeuropathy of bilateral lower limbs Category: Medical (2) Radiculopathy: Code(s): M54.10 - Radiculopathy, site unspecified Category: Medical (3) Hallux valgus (acquired), left foot: Code(s): M20.12 - Hallux valgus (acquired), left foot Category: Medical (4) Left foot pain: Code(s): M79.672 - Pain in left foot Category: Medical (5) Metatarsalgia: Code(s): M77.40 - Metatarsalgia, unspecified foot Category: Medical Plan Patient was informed and verbally consented to the use of an ambient scribe for clinic note documentation during this visit. I informed the patient that the numbness in her toes is secondary to lumbar radiculopathy, a finding confirmed by her recent nerve conduction studies and MRI studies. We reviewed her x-rays which demonstrated a mild bunion, and I explained that surgery is not indicated at this time. I also explained that the fluctuating prominence of the bump is likely due to intermittent soft tissue swelling rather than changes in the bone angle. We discussed her current management with metatarsal pads, which she finds helpful, and I encouraged her to continue their use, providing her with a new pair. For increased pain when wearing heels, I suggested trying [id number] silicone metatarsal pads for softer cushioning. I advised the patient that she can follow up as needed if her symptoms change or worsen. - The patient is to continue to wear metatarsal pads for cushioning and pain relief. - Provided a new pair of metatarsal pads to the patient. - Recommended [id number]-[id number] gel or silicone metatarsal pads for use with heeled shoes to provide softer cushioning and reduce tightness. - Advised patient to wear supportive shoe gear and to avoid barefoot walking. - Discussed that if foot pain worsens, full-length shoe inserts could be considered as an alternative. - Reassured the patient that her mild bunion deformity does not require surgical intervention at this time. RTC PRN. Coding Level of Care Code Est Pt Level 4 (37352) Diagnoses Neuropathy of both feet G57.93 Radiculopathy M54.10 Hallux valgus (acquired), left foot M20.12 Left foot pain M79.672 Metatarsalgia M77.40 Time Spent (min) 33
--- OUTSIDE RECORDS SUMMARY | 2025-10-29 08:49 | XMS_ITS | Patient Health Record ---
Author Organization [facility] Address [address] [place] [id number] Care Team Providers Care Core Dipper Name Role Phone Yocasta Webster Primary Care Provider UnavailJulio C Irving Unavailable [phone] Allergies Allergen (clinical drug ingredient) Drug/Non Drug Allergy documented on EMR Reaction Allergy Type Onset Date Status moxifloxacin Avelox Unknown Drug Allergy Acti ve Reason For Referral No Information Medications Medication SIG (Take, Route, Frequency, Duration) Notes Start Date End Date Status Suprep Bowel Prep (17.5g/3.13g/1.6g) per 6 ounces Solution as directed Orally once; Duration: 1 dose 11/30/2012 Active Tablet 1 tablet Orally QID prn abdominal bloating/cramps/diarrhea; Duration: 30 day(s) 11/30/2012 Active Calcium + D Active Biotin Active Aspir-81 81mg Active Simvastatin 20mg Act grisel valACYclovir HCl 500 MG Tablet 1 tablet Orally Once a day; Duration: 10 day(s) Active Fish Oil Active Immunizations Vaccine Route Administration Date Status Comme nts Influenza Unknown 10/04/2022 Administered Social History Social History Additional Details Category Social Info Options Details Miscellaneous: Marital status: 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 alcohol Nonsmoker; no sig. alcohol Problems Problem Type SNOMED Code ICD Code Onset Dates Problem Status W/U Status Risk Notes Problem Colon cancer screening (912156601) Colon cancer screening (Z12.11) Active confirmed Problem Diverticular disease of colon (418756577) Diverticulosis of large intestine without perforation or abscess without bleeding (K57.30) Active confirmed Problem Preprocedural examination (329740718242056) Preprocedural examination (Z01.818) Active confirmed Problem Intolerance to lactose (finding) (894696446) Lactose intolerance (E73.9) Active confirmed Problem Irritable bowel syndrome (26462721) Other irritable bowel syndrome (K58.8) Active confirmed Plan Of Treatment Future Test Test Name Order Date COLONOSCOPY 11/30/2012 COLONOSCOPY 02/15/2023 Insurance Providers Payer Name Payer Address Payer Phone Subscriber Number Group Number Insured Name Patient Relationship to Insured Coverage Start Date Coverage End Date [employer] [address] [address] [place] [address] [id number] KURTIS GAONA Self - patient is [...]
== END 2025-10-29 09:51 | disposition home or self-care (01) ==
LOC: HO.HPODS 08:33
PROVIDERS: PCP Nurse Practitioner Family; Visit Provider Student in an Organized Health Care Education/Training Program
DX: G57.93 Unspecified mononeuropathy of bilateral lower limbs (principal); M54.10 Radiculopathy, site unspecified; M20.12 Hallux valgus (acquired), left foot; M79.672 Pain in left foot; M77.40 Metatarsalgia, unspecified foot
CPT/HCPCS: 99214